=== PATIENT | male | born 1955 | race Caucasian/White ===

== ENCOUNTER 2017-10-18 08:33 | Emergency (ER) | payer BC, SELFPAY ==
[2017-10-18 08:36] VITALS: BP 163/88; PULSE 77; RESP 20; TEMP 36.6; O2SAT 100; BMI 34.7
--- NOTE | 2017-10-18 09:02 | [facility].EDGENADL ---
ED Disposition Clinical Impression: Venous stasis ulcer with edema of lower leg Disposition: Home, Self-Care Condition on Discharge: Good Instructions: DI for Edema Due to Venous Stasis, Venous Stasis Ulcer Additional Instructions: Follow-up at edema clinic as scheduled. Elevate legs as often as possible Additional instructions for CONTROLLED SUBSTANCES: You have been prescribed a medication that is a controlled substance. Controlled substances include pain medications known as opiates and sedative nerve medications known as benzodiazepines. Some common opiates include: Codeine (such as Tylenol #3) Hydrocodone (Vicodin, Lortab, Lorcet, Dougherty) Oxycodone (Percocet, Percodan, Oxycodone, Oxy IR) Some common benzodiazepines include: Diazepam (Valium) Lorazepam (Ativan) Alprazolam (Xanax) Clonazepam (Klonopin) Oxazepam (Serax) All of these controlled substances are highly addictive and frequently abused. Misuse can and frequently does lead to addiction as well as overdose and . Medication should be stored in a locked cabinet or other secure storage unit. Do not store the medication in a motor vehicle. Short term supplies, 3 days or less, are prescribed because of the highly addictive nature of the medication. Any of the controlled substance medication NOT taken should be disposed of properly and NOT SAVED. The recommended method of disposing of unused medications is: Place the medicines in a sealable plastic bag. If the medicine is a solid, crush it or add water to dissolve it. Add something undesirable (cat litter, coffee grounds, etc.) Dispose of sealed bag in household trash Do not flush or pour unused medicines down a sink or drain. Controlled substances should not be shared, given away or sold. Because of the addictive nature and frequent abuse, these medications are sometimes stolen. These medications should be kept in a safe place where they cannot be stolen. Do not keep them in your car or purse. Lost or stolen prescriptions for controlled substances WILL NOT BE REFILLED in this emergency department, regardless of whether a police report was filed. Prescriptions: Tramadol HCl [Ultram 50mg tablet] 50 mg PO HSP PRN #10 tab PRN Reason: Moderate Pain Referrals: Shanon Peralta [Primary Care Provider] - - Critical Care Critical Care Time: No Attestation: On 10/18/17, the high probability of a clinically significant, sudden or life threatening deterioration of the following system(s) required my full and direct attention, intervention and personal management. The time I documented below is in addition to time spent performing reported procedures but includes the following listed in this critical care notation. Medical Decision Making Vital Signs: 10/18/17 08:36 Temperature 97.8 F Temperature Source Oral Pulse Rate [Right Brachial] 77 Respiratory Rate 20 Blood Pressure [Right Arm] 163/88 Blood Pressure Mean [Right Arm] 113 Blood Pressure Source [Right Arm] Automatic Cuff Blood Pressure Position [Right Arm] Sitting 02 Sat by Pulse Oximetry 100 Oxygen Delivery Method Room Air - Lab Data Lab Results 10/18/17 09:20: WBC 10.1, RBC 5.36, Hgb 15.1, Hct 47.3, MCV 88.2, MCH 28.2, MCHC 32.0, RDW 14.5, Plt Count 275, MPV 7.9, Neut % (Auto) 83.6 H, Lymph % (Auto) 9.0 L, [place] % (Auto) 5.8, Eos % (Auto) 1.1, Baso % (Auto) 0.5, Neut # (Auto) 8.5 H, Lymph # (Auto) 0.9, [place] # (Auto) 0.6, Eos # (Auto) 0.1, Baso # (Auto) 0.1 10/18/17 09:20: Sodium 141, Potassium 4.1, Chloride 102, Carbon Dioxide 32, Anion Gap 11.1, BUN 24 H, Creatinine 0.94, Estimated Creat Clear 138, Estimated GFR 82, Est GFR ( Amer) 99, Glucose 195 H, Calcium 8.9, Total Bilirubin 0.2, AST 11 L, ALT 26, Alkaline Phosphatase 105, Total Protein 7.2, Albumin 3.4, Globulin 3.8 H, Albumin/Globulin Ratio 0.9 L 10/18/17 09:20: Lactic Acid 1.3 10/18/17 09:20: TSH 0.52, Free T4 Index 5.0 L, Thyroxine (T4) 12.9, T3 Uptake 39 0
[2017-10-18 09:30] LABS: Basophils # 0.1 K/mm3 (0-0.2); Basophils % 0.5 % (0.1-2.0); Eosinophils # 0.1 K/mm3 (0.0-0.4); Eosinophils % 1.1 % (0.1-12.0); Hematocrit 47.3 % (42.0-52.0); Hemoglobin 15.1 g/dL (14.1-18.0); Lymphocytes # 0.9 K/mm3 (0.7-4.5); Mean Corpuscular Hemoglobin 28.2 pg (27.0-31.2); Mean Corpuscular Volume 88.2 fl (80-94); Mean Platelet Volume 7.9 fl (7.4-10.4); Monocytes # 0.6 K/mm3 (0.1-1.0); Monocytes % 5.8 % (1.7-9.3); Neutrophils # 8.5 K/mm3 (1.8-7.8); Neutrophils % 83.6 % (37.0-80.0); Platelet Count 275 K/mm3 (142-424); Red Blood Count 5.36 M/mm3 (4.60-6.20); Red Cell Distribution Width 14.5 % (11.5-17.5); White Blood Count 10.1 K/mm3 (4.8-10.8)
[2017-10-18 09:44] LABS: Alanine Aminotransferase 26 U/L (12-78); Albumin Level 3.4 gm/dL (3.4-5.0); Albumin/Globulin Ratio 0.9 (1.1-1.8); Alkaline Phosphatase 105 U/L (46-116); Anion Gap 11.1 mEq/L (5-15); Aspartate Amino Transferase 11 U/L (15-37); Bilirubin,Total 0.2 mg/dL (0.2-1.0); Blood Urea Nitrogen 24 mg/dL (7-18); Calcium 8.9 mg/dL (8.5-10.1); Carbon Dioxide 32 mmol/L (21.0-32.0); Chloride 102 mmol/L (98-107); Creatinine Clearance Estimated 138 mL/min (0-300); Creatinine,Serum 0.94 mg/dL (0.70-1.30); Estimated Glomerular Filt Rate 82 ml/min (>60); GFR (African American) 99 ML/MIN (>60); Globulin 3.8 gm/dl (1.3-3.2); Glucose 195 mg/dL (74-106); Potassium 4.1 mmoL/L (3.5-5.1); Sodium 141 mmol/L (136-145); Total Protein,Serum 7.2 gm/dL (6.4-8.2)
[2017-10-18 09:51] LABS: Lactic Acid 1.3 mmol/L (0.4-2.0)
[2017-10-18 09:52] LABS: T4 (Thyroxine) 12.9 ug/dl (4.7-13.3); Thyroid Stimulating Hormone 0.52 uIU/ml (0.358-3.740); Triiodothryronine (T3) Uptake 39 % (31-39)
[2017-10-18 10:43] VITALS: BP 148/78; PULSE 78; RESP 18; TEMP 36.7; O2SAT 100
== END 2017-10-18 10:53 | disposition home or self-care (01) ==
PROVIDERS: Emergency Provider Emergency Medicine; Family Provider Physician Assistant; PCP Physician Assistant
DX: I83.022 Varicose veins of left lower extremity with ulcer of calf (principal); E11.65 Type 2 diabetes mellitus with hyperglycemia; Z79.4 Long term (current) use of insulin; Z79.84 Long term (current) use of oral hypoglycemic drugs; I10 Essential (primary) hypertension; Z87.891 Personal history of nicotine dependence
CPT/HCPCS: 80053; 83605; 83880; 84436; 84443; 84479; 85025; 87040; 99283

== ENCOUNTER → 2017-10-24 15:18 | Outpatient (REF) | payer BC, SELFPAY | LOC: LAB 15:18 | PROVIDERS: Visit Provider Emergency Medicine | DX: L03.116 Cellulitis of left lower limb (principal) | CPT/HCPCS: 36415; 87070; 87077; 87186; 87205 ==

== ENCOUNTER → 2017-12-29 08:43 | Outpatient (CLI) | payer BC, SELFPAY ==
[2017-12-29 09:35] LABS: Basophils % 0.5 % (0.1-2.0); Eosinophils # 0.3 K/mm3 (0.0-0.4); Eosinophils % 3.3 % (0.1-12.0); Hematocrit 44.6 % (42.0-52.0); Hemoglobin 14.8 g/dL (14.1-18.0); Lymphocytes # 1.9 K/mm3 (0.7-4.5); Lymphocytes % 23.5 K/mm3 (10-50); Mean Corpuscular HGB Conc 33.2 g/dL (31.8-35.4); Mean Corpuscular Hemoglobin 27.7 pg (27.0-31.2); Mean Corpuscular Volume 83.4 fl (80-94); Mean Platelet Volume 8.3 fl (7.4-10.4); Monocytes # 0.4 K/mm3 (0.1-1.0); Monocytes % 5.4 % (1.7-9.3); Neutrophils # 5.3 K/mm3 (1.8-7.8); Neutrophils % 67.3 % (37.0-80.0); Platelet Count 259 K/mm3 (142-424); Red Blood Count 5.35 M/mm3 (4.60-6.20); Red Cell Distribution Width 14.2 % (11.5-17.5); White Blood Count 7.9 K/mm3 (4.8-10.8)
[2017-12-29 10:21] LABS: Alanine Aminotransferase 23 U/L (12-78); Albumin Level 3.4 gm/dL (3.4-5.0); Albumin/Globulin Ratio 1.1 (1.1-1.8); Alkaline Phosphatase 100 U/L (46-116); Anion Gap 11.5 mEq/L (5-15); Aspartate Amino Transferase 17 U/L (15-37); Bilirubin,Total 0.4 mg/dL (0.2-1.0); Blood Urea Nitrogen 20 mg/dL (7-18); Calcium 9.3 mg/dL (8.5-10.1); Carbon Dioxide 30 mmol/L (21.0-32.0); Chloride 104 mmol/L (98-107); Chol/HDL Ratio 3.1 (1-3.5); Cholesterol 116 mg/dL (140-200); Creatinine,Serum 0.77 mg/dL (0.70-1.30); Estimated Glomerular Filt Rate 103 ml/min (>60); GFR (African American) 124 ML/MIN (>60); Glucose 113 mg/dL (74-106); HDL Cholesterol 38 mg/dL (27-67); LDL Cholesterol 64 mg/dL (0-130); Potassium 4.5 mmoL/L (3.5-5.1); Sodium 141 mmol/L (136-145); Total Protein,Serum 6.4 gm/dL (6.4-8.2); Triglycerides 69 mg/dL (30-200); VLDL Cholesterol 14 mg/dL (0-40)
[2017-12-29 10:57] LABS: Hemoglobin A1C 8.4 % (0.0-7.0)
== END ==
PROVIDERS: Visit Provider Internal Medicine Adolescent Medicine
DX: E11.9 Type 2 diabetes mellitus without complications (principal); B95.62 Methicillin resistant Staphylococcus aureus infection as the cause of diseases classified elsewhere
CPT/HCPCS: 36415; 80053; 80061; 83036; 85025

== ENCOUNTER 2018-01-02 09:00 | Outpatient (RCR) | payer BC, SELFPAY | END 2018-01-02 09:01 | disposition home or self-care (01) | LOC: PT 09:00 | PROVIDERS: Family Provider Physician Assistant; PCP Physician Assistant; Visit Provider Emergency Medicine | DX: I89.0 Lymphedema, not elsewhere classified (principal) | CPT/HCPCS: 29580; 87070; 87205; 97140; 97162; 97597; 97760 ==

== ENCOUNTER → 2018-02-15 14:59 | Outpatient (CLI) | payer BC, SELFPAY ==
--- NOTE | 2018-02-15 15:02 | US_ITS ---
US Arterial Ankle Brachial Ind History: ITS.REASON: skin changes , venous stasis ulcers, hypertension, previous smoker ORDERING PHYSICIAN: Theresa Morales DPM PATIENT AGE: 62 years TECHNIQUE: Segmental pressures obtained of both right and left leg. These are compared to brachial blood pressure to yield index at each level sampled including summary LILIYA. The data sheets from the procedure are available in PACS FINDINGS Rest study only performed today No prior studies available for comparison. Blood pressures reported are in millimeters mercury. RIGHT LEG LILIYA = 1.2. RIGHT LEG TBI=.9 Brachial BP: 164 Thigh BP: 194 Calf BP: 201 Ankle PT: 202 Ankle DP : 186 Digit =147 LEFT LEG LILIYA = 1.2 LEFT LEG TBI= .8 Brachial BPD: 161 Thigh BP: 196 Calf BP: 197 Ankle PT:199 Ankle DP: 187 Digit = 131 Pulses and waveforms: Diminished waveforms at the ankles IMPRESSION: The ABIs and TBI's are within normal limits. There is diminished waveforms at the ankle but the pulses are normal
== END ==
PROVIDERS: Family Provider Physician Assistant; PCP Internal Medicine Adolescent Medicine; Visit Provider Podiatrist
DX: I83.009 Varicose veins of unspecified lower extremity with ulcer of unspecified site (principal); R60.9 Edema, unspecified; R23.9 Unspecified skin changes; E11.8 Type 2 diabetes mellitus with unspecified complications
CPT/HCPCS: 93922

== ENCOUNTER 2018-07-25 11:51 | Observation (INO) ==
[2018-07-25 13:22] LABS: Basophils # 0.1 K/mm3 (0-0.2); Basophils % 0.5 % (0.1-2.0); Eosinophils # 0.3 K/mm3 (0.0-0.4); Eosinophils % 3.1 % (0.1-12.0); Hematocrit 42.5 % (42.0-52.0); Hemoglobin 13.8 g/dL (14.1-18.0); Lymphocytes # 1.3 K/mm3 (0.7-4.5); Lymphocytes % 13.1 % (10-50); Mean Corpuscular HGB Conc 32.4 g/dL (31.8-35.4); Mean Corpuscular Hemoglobin 27.4 pg (27.0-31.2); Mean Corpuscular Volume 84.8 fl (80-94); Mean Platelet Volume 8.3 fl (7.4-10.4); Monocytes # 0.6 K/mm3 (0.1-1.0); Monocytes % 6.2 % (1.7-9.3); Neutrophils # 7.4 K/mm3 (1.8-7.8); Neutrophils % 77.2 % (37.0-80.0); Platelet Count 285 K/mm3 (142-424); Red Blood Count 5.02 M/mm3 (4.60-6.20); Red Cell Distribution Width 14.2 % (11.5-17.5); White Blood Count 9.6 K/mm3 (4.8-10.8)
--- NOTE | 2018-07-25 13:23 | Pharmacy Consult Notes ---
[facility] Pharmacy VTE Monitoring - Patient Demographics Admission date: 07/25/18 Report Date: 07/25/18 Time: 13:22 Allergies/Adverse Reactions: Patient Allergies No Known Allergies Allergy (Verified 04/26/18 09:29) Height: 1.91 m Weight: 127.006 kg - VTE Risk VTE Score: 2 VTE Risk Level: Low Risk - Prophylaxis VTE Prophylaxis Ordered?: Yes Types of VTE Prophylaxis: Pharmacological Pharmacologic Type: Enoxaparin
[2018-07-25 13:27] LABS: Albumin Level 2.9 gm/dL (3.4-5.0); Albumin/Globulin Ratio 0.7 (1.1-1.8); Anion Gap 12.8 mEq/L (5-15); Bilirubin,Total 0.7 mg/dL (0.2-1.0); C-Reactive Protein 9.2 mg/L (0.0-0.9); Calcium 8.7 mg/dL (8.5-10.1); Globulin 4.1 gm/dl (1.3-3.2); Potassium 3.8 mmoL/L (3.5-5.1)
--- NOTE | 2018-07-25 14:32 | Consult Report ---
*Admission Date: 07/25/18 *Chief complaint: Left foot cellulitis, DM ulcer *History of present illness: Mr. Nunez is a 63 DM male who presents for a direct admission from Dr. Mullen's office for left foot pain and swelling. He states he noticed some time last week a "blister to the left great toe". He denies drainage from the foot. He states yesterday when he took off his sock the blister skin tore off. Denies purulent drainage. He denies N/V, F/C, SOB/CP. Patient sees us in outpatient clinic regularly for DFC. He also sees Emma Curran at lymphedema clinic for compression therapy. He has a history of b/l LE edema. Review of Systems - Constitutional Reports anorexia, Denies chills - Eyes Denies blurry vision - ENT Denies abnormal hearing, Denies headache(s) - *Cardiovascular Reports generalized swelling (LLE), Denies shortness of breath - *Respiratory Denies chest congestion, Denies shortness of breath - *Gastrointestinal Denies nausea, Denies vomiting - *Genitourinary Denies difficulty urinating - *Musculoskeletal Denies abnormal walking - Integumentary/Breasts Reports hair loss - *Neurologic Reports tingling/numbness/burning sensations, Denies confusion, Denies headache(s) - Psychiatric Denies behavioral changes - Endocrine Denies cold intolerance - Hematologic/Lymphatic Denies easy bleeding [facility] History Medical History: Reports:: Cancer (skin cancer), Diabetes Mellitus Type 2, H yperlipidemia, Hypertension Denies:: Diabetes Mellitus Type 1, Internal Pacemaker, Lung Disease, MRSA, Seizures Other Medical History: Reports: Hypothyroidism Laterality Cases: Bilateral: Tonsillectomy Other Surgeries: Yes: Appendectomy, Hernia Repair (x3), Thyroidectomy. No: Pacemaker Amputation: No Fractures: No - *Social History Educational Level: Completed High School Smoking Status: Former smoker Alcohol Intake: never Alcohol Intake Frequency:: other Occupational Status: retired Housing: house Household Members: none - Psychiatric History Expresses thoughts of harming self/others: None Suicide Plan Description: No Plan *Family Hx:: Diabetes, Hyperlipidemia, Hypertension Meds Home Medications Medication Instructions Recorded Confirmed Type Aspirin [Aspirin 325mg Tab] 325 mg PO DAILY 10/18/17 07/25/18 History Atorvastatin Calcium [Atorvastatin 20 mg PO HS 10/18/17 07/25/18 History 20mg Tab] Levothyroxine Sodium 250 mcg PO DAILY 10/18/17 07/25/18 History [Levothyroxine 125mcg (0.125mg) Tab] Lisinopril [Lisinopril 40mg Tablet] 40 mg PO HS 10/18/17 07/25/18 History Metformin HCl [Glucophage 500mg 1,000 mg PO BID 10/18/17 07/25/18 History Tablet] insulin aspar prt-insulin aspart 10 - 30 unit SUB-Q QAM 01/29/18 07/25/18 History 100 unit/mL (70-30) subcutaneous soln insulin glargine 100 28 units SUB-Q QAM ml 01/29/18 07/25/18 History unit-lixisenatide 33 mcg/mL subcutaneous pen Allergies Allergy/AdvReac Type Severity Reaction Status Date / Time No Known Allergies Allergy Verified 04/26/18 09:29 Exam Vital signs and Labs for Last 24 Hours: Temp Pulse Resp BP Pulse Ox 97.0 F L 82 18 164/71 H 98 07/25/18 12:29 07/25/18 12:29 07/25/18 12:29 07/25/18 12:29 07/25/18 12:29 Laboratory Results - last 24 hr 07/25/18 12:50: WBC 9.6, RBC 5.02, Hgb 13.8 L, Hct 42.5, MCV 84.8, MCH 27.4, MCHC 32.4, RDW 14.2, Plt Count 285, MPV 8.3, Neut % (Auto) 77.2, Lymph % (Auto) 13.1, [place] % (Auto) 6.2, Eos % (Auto) 3.1, Baso % (Auto) 0.5, Neut # (Auto) 7.4, Lymph # (Auto) 1.3, [place] # (Auto) 0.6, Eos # (Auto) 0.3, Baso # (Auto) 0.1 07/25/18 12:50: Sodium 139, Potassium 3.8, Chloride 101, Carbon Dioxide 29, Anion Gap 12.8, BUN 26 H, Creatinine 0.99, Estimated Creat Clear 138, Estimated GFR 77, Est GFR ( Amer) 93, Glucose 202 H, Calcium 8.7, Total Bilirubin 0.7, AST 8 L, ALT 21, Alkaline Phosphatase 119 H, C-Reactive Protein 9.2 H, Total Protein 7.0, Albumin 2.9 L, Globulin 4.1 H, Albumin/Globulin Ratio 0.7 L 07/25/18 12:50: ESR 59 H 07/25/18 12:50: Hemoglobin A1c 7.5 H I & O for Last 24 hours: Intake & Output 07/23/18 07/24/18 07/25/18 07/26/18 11:59 11:59 11:59 11:59 Weight 280 lb - *Routine HEENT Exam Head: Present: normocephalic - *Routine Neck Exam Present: supple, full ROM - *Routine Respiratory Exam Present: accessory muscle use. Absent: respiratory distress - *Routine Cardiovascular Exam Present: RRR - *Routine Abdominal Exam Present: soft. Absent: guarding - *Routine Rectal Exam Patient deferred: visual exam - *Routine Exam Patient deferred: penile exam - *Routine Extremities Exam Present: edema, pulses intact, tenderness (LLE). Absent: amputation - *Routine Skin Exam Present: erythema, warm, wounds - *Routine Neurological Exam Present: alert, oriented X3, moving all extremities - Detailed Lower Extremity Exam Ankle: Left erythema, Left tenderness Foot/Toes: Left erythema Top foot image: 1 - Left hallux intact eschar. Ulcer thru skin. No deep opening or sinus tracking. No pain to palpation. Post debridement, wound base 50% intact eschar, 30% fibrotic and 20% granular. Measures 2.7 x 2.3 x 0.1 cm, probes thru skin to subq. Not to bone. No malodor or drainage. No fluid to culture. 2 - Left sub 5th met ulcer. Wound base fibrotic. Measures 2.1 x 1.8 x 0.2cm post debridement. Wound thru skin into subq layer. No probe to bone Results - Labs Result Diagrams: 07/25/18 12:50 07/25/18 12:50 Labs: Abnormal lab results 07/25/18 07/25/18 07/25/18 Range/Units 12:50 12:50 12:50 Hgb 13.8 L (14.1-18.0) g/dL ESR 59 H (0-20) mm/hr BUN 26 H (7-18) mg/dL Glucose 202 H (74-106) mg/dL Hemoglobin A1c (0.0-7.0) % AST 8 L (15-37) U/L Alkaline Phosphatase 119 H (46-116) U/L C-Reactive Protein 9.2 H (0.0-0.9) mg/L Albumin 2.9 L (3.4-5.0) gm/dL Globulin 4.1 H (1.3-3.2) gm/dl Albumin/Globulin Ratio 0.7 L (1.1-1.8) 07/25/18 Range/Units 12:50 Hgb (14.1-18.0) g/dL ESR (0-20) mm/hr BUN (7-18) mg/dL Glucose (74-106) mg/dL Hemoglobin A1c 7.5 H (0.0-7.0) % AST (15-37) U/L Alkaline Phosphatase (46-116) U/L C-Reactive Protein (0.0-0.9) mg/L Albumin (3.4-5.0) gm/dL Globulin (1.3-3.2) gm/dl Albumin/Globulin Ratio (1.1-1.8) H & H 07/25/18 Range/Units 12:50 Hgb 13.8 L (14.1-18.0) g/dL Hct 42.5 (42.0-52.0) % All other labs normal. - Diagnostic results Ankle/Foot x-ray: image reviewed Assessment and Plan (1) Cellulitis of left foot Current visit: Yes Status: Acute Category: Medical Code(s): L03.116 - Cellulitis of left lower limb (2) Ulcer of left foot due to type 2 diabetes mellitus Current visit: Yes Status: Acute Category: Medical Code(s): E11.621 - Type 2 diabetes mellitus with foot ulcer; L97.529 - Non-pressure chronic ulcer of other part of left foot with unspecified severity (3) Venous insufficiency (chronic) (peripheral) Current visit: Yes Status: Acute Category: Medical Code(s): I87.2 - Venous insufficiency (chronic) (peripheral) (4) Obesity, Class II, BMI 35-39.9 Current visit: Yes Status: Acute Category: Medical Code(s): E66.9 - Obesity, unspecified (5) Diabetes mellitus Current visit: Yes Status: Acute Qualifiers: Diabetes mellitus type: type 2 Diabetes mellitus terminologist insulin use: without half-way use Diabetes mellitus complication status: with neurologic complications Diabetes mellitus complication detail: with polyneuropathy Qualified Code(s): E11.42 - Type 2 diabetes mellitus with diabetic polyneuropathy Category: Medical Code(s): E11.9 - Type 2 diabetes mellitus without comp lications - Assessment and plan all Dx Assessment and Plan for all problems:: Left Foot Cellulitis and Infected Wound: left hallux and sub 5th met ulcer I discussed with the patient the importance of proper hygiene and maintaining a clean healthy wound bed to avoid the infection spreading. The wound was cleansed with betadine. Utilizing a 15 blade, the wound was sharply excisionally debrided through skin into sub q layer. Biofilm and fibrotic slough were debrided. The wound did not probe thru deep fascia and into the bone. There was no drainage and no purulence noted. No wound culture obtained. Blanche-wound cellulitis noted and extends to foot and to mid calf on the left leg. Non-palpable popliteal lymph nodes. Post-debridement the left hallux wound base was: 20% granular, 30% fibrotic, 50% eschar and measured 2.7 x 2.3 x 0.1 cm. . Post-debridement the left sub 5th met wound base was: 100% fibrotic and measured 2.1 x 1.8 x 0.2 cm. Labs: ESR 59, CRP 9.2, wbc 9.6, Ha1c 7.5% 1. Dressing applied: betadine dry sterile dressing 2. Wound care instructions given: change dressing daily with Santyl 3. PWB in post op shoe with DME assistance; needs walker 4. Order infection panel: CBC, ESR, CRP, Ha1c, CMP. 5. IV antibiotics 6. X-rays 3 views left foot: no definitive ostemyelitis 7. MRI left foot w/wout to evaluate for underlying OM 8. I discussed treatment plan with the patient. No plans for surgical intervention today. Will await results of the MRI. I did discuss with the patient if there is osteomyelitis I would recommend amputation/debridement. If no osteomyelitis can continue the antibiotics for the cellulitis and do local wound care outpatient for the ulcers. Patient verbalizes understanding and agreement with the treatment plan 9. NPO after midnight tonight 10. Plan to see patient in the am
--- NOTE | 2018-07-25 17:11 | History & Physical Report ---
*Admission Date: 07/25/18 *Chief complaint: left foot pain and swelling *History of present illness: Mr. Nunez is a 63 DM male who presents for a direct admission from Dr. Mullen's office for left foot pain and swelling. He states he noticed some time last week a "blister to the left great toe". He denies drainage from the foot. He states yesterday when he took off his sock the blister skin tore off. Denies purulent drainage. He denies N/V, F/C, SOB/CP. Patient sees us in outpatient clinic regularly for DFC. He also sees Emma Curran at lymphedema clinic for compression therapy. He has a history of b/l LE edema. Above per Dr. Morales [facility] History I have reviewed the patient's past medical history: Yes Medical History: Reports:: Cancer (skin cancer), Diabetes Mellitus Type 2, Hyperlipidemia, Hypertension Denies:: Diabetes Mellitus Type 1, Internal Pacemaker, Lung Disease, MRSA, Seizures Other Medical History: Reports: Hypothyroidism Laterality Cases: Bilateral: Tonsillectomy Other Surgeries: Yes: Appendectomy, Hernia Repair (x3), Thyroidectomy. No: Pacemaker Amputation: No Fractures: No - *Social History Educational Level: Completed High School Smoking Status: Former smoker Alcohol Intake: never Alcohol Intake Frequency:: other Occupational Status: retired Housing: house Household Members: none - Psychiatric History Expresses thoughts of harming self/others: None Suicide Plan Description: No Plan *Family Hx:: Diabetes, Hyperlipidemia, Hypertension Review of Systems - Review of Systems Review of systems:: pertinent systems reviewed and negative unless documented below - Integumentary/Breasts Comments: left toe wound, left lateral foot wound - *Neurologic Reports tingling/numbness/burning sensations, Denies abnormal walking, Denies abnormal hearing, Denies behavioral changes, Denies confusion, Denies headache(s) Meds Home Medications Medication Instructions Recorded Confirmed Type Aspirin [Aspirin 325mg Tab] 325 mg PO DAILY 10/18/17 07/25/18 History Atorvastatin Calcium [Atorvastatin 20 mg PO HS 10/18/17 07/25/18 History 20mg Tab] Levothyroxine Sodium 250 mcg PO DAILY 10/18/17 07/25/18 History [Levothyroxine 125mcg (0.125mg) Tab] Lisinopril [Lisinopril 40mg Tablet] 40 mg PO HS 10/18/17 07/25/18 History Metformin HCl [Glucophage 500mg 1,000 mg PO BID 10/18/17 07/25/18 History Tablet] insulin aspar prt-insulin aspart 10 - 30 unit SUB-Q QAM 01/29/18 07/25/18 History 100 unit/mL (70-30) subcutaneous soln insulin glargine 100 28 units SUB-Q QAM ml 01/29/18 07/25/18 History unit-lixisenatide 33 mcg/mL subcutaneous pen Allergies Allergy/AdvReac Type Severity Reaction Status Date / Time No Known Allergies Allergy Verified 04/26/18 09:29 Exam Vital signs and Labs for Last 24 Hours: Temp Pulse Resp BP Pulse Ox 97.0 F L 82 18 164/71 H 98 07/25/18 12:29 07/25/18 12:29 07/25/18 12:29 07/25/18 12:29 07/25/18 12:29 Laboratory Results - last 24 hr 07/25/18 12:50: WBC 9.6, RBC 5.02, Hgb 13.8 L, Hct 42.5, MCV 84.8, MCH 27.4, MCHC 32.4, RDW 14.2, Plt Count 285, MPV 8.3, Neut % (Auto) 77.2, Lymph % (Auto) 13.1, [place] % (Auto) 6.2, Eos % (Auto) 3.1, Baso % (Auto) 0.5, Neut # (Auto) 7.4, Lymph # (Auto) 1.3, [place] # (Auto) 0.6, Eos # (Auto) 0.3, Baso # (Auto) 0.1 07/25/18 12:50: Sodium 139, Potassium 3.8, Chloride 101, Carbon Dioxide 29, Anion Gap 12.8, BUN 26 H, Creatinine 0.99, Estimated Creat Clear 138, Estimated GFR 77, Est GFR ( Amer) 93, Glucose 202 H, Calcium 8.7, Total Bilirubin 0.7, AST 8 L, ALT 21, Alkaline Phosphatase 119 H, C-Reactive Protein 9.2 H, Total Protein 7.0, Albumin 2.9 L, Globulin 4.1 H, Albumin/Globulin Ratio 0.7 L 07/25/18 12:50: ESR 59 H 07/25/18 12:50: Hemoglobin A1c 7.5 H I & O for Last 24 hours: Intake & Output 07/23/18 07/24/18 07/25/18 07/26/18 11:59 11:59 11:59 11:59 Weight 280 lb Microbiology Reports for the Last 24 Hours: Microbiology 07/25/18 13:45 Foot,Left Gram Stain - Final Narrative: ALert and oriented x3. Rate and rhythm regular. Lung sounds clear and equal. ENT exam unremarkable. Abdomen soft and nontender, left 1st toe with eschar, biofilm and sloughing of skin, serous fluid seeping from wound, edema and erythema extend up the foot, 1+ LLE edema, right foot with multiple varcosities Assessment and Plan (1) Cellulitis of left foot Current visit: Yes Status: Acute Category: Medical Code(s): L03.116 - Cellulitis of left lower limb (2) Ulcer of left foot due to type 2 diabetes mellitus Current visit: Yes Status: Acute Category: Medical Code(s): E11.621 - Type 2 diabetes mellitus with foot ulcer; L97.529 - Non-pressure chronic ulcer of other part of left foot with unspecified severity (3) Venous insufficiency (chronic) (peripheral) Current visit: Yes Status: Acute Category: Medical Code(s): I87.2 - Venous insufficiency (chronic) (peripheral) (4) Obesity, Class II, BMI 35-39.9 Current visit: Yes Status: Acute Category: Medical Code(s): E66.9 - Obesity, unspecified (5) Diabetes mellitus Current visit: Yes Status: Acute Qualifiers: Diabetes mellitus type: type 2 Diabetes mellitus intermediate insulin use: without intermediate use Diabetes mellitus complication status: with neurologic complications Diabetes mellitus complication detail: with polyneuropathy Qualified Code(s): E11.42 - Type 2 diabetes mellitus with diabetic polyneuropathy Category: Medical Code(s): E11.9 - Type 2 diabetes mellitus without complications - Assessment and plan all Dx Assessment and Plan for all problems:: Admit for IV antibiotics. Podiatry consulted, note reviewed and appreciated. Sed rate and CRP are elevated which is concerning. Will obtain MRI of left foot tomorrow as ordered by Dr. Morales and treat as indicated.
[2018-07-26 07:20] LABS: Basophils # 0.1 K/mm3 (0-0.2); Basophils % 0.7 % (0.1-2.0); Eosinophils # 0.3 K/mm3 (0.0-0.4); Eosinophils % 3.1 % (0.1-12.0); Hematocrit 41.5 % (42.0-52.0); Hemoglobin 13.4 g/dL (14.1-18.0); Lymphocytes # 1.7 K/mm3 (0.7-4.5); Lymphocytes % 19.3 % (10-50); Mean Corpuscular HGB Conc 32.2 g/dL (31.8-35.4); Mean Corpuscular Volume 83.8 fl (80-94); Mean Platelet Volume 7.6 fl (7.4-10.4); Monocytes # 0.6 K/mm3 (0.1-1.0); Monocytes % 6.8 % (1.7-9.3); Neutrophils # 6.3 K/mm3 (1.8-7.8); Neutrophils % 70.2 % (37.0-80.0); Platelet Count 307 K/mm3 (142-424); Red Blood Count 4.96 M/mm3 (4.60-6.20); Red Cell Distribution Width 13.9 % (11.5-17.5)
--- NOTE | 2018-07-26 08:11 | Progress Note ---
Subjective Date: 07/26/18 Time: 07:50 Principal diagnosis: Left foot DM ulcer Interval history: Patient "feels fine". He is resting comfortably, ate breakfast. Denies N/V, F/C, SOB/CP. PN: Obj Ex Vital signs: Temp Pulse Resp BP Pulse Ox 98.3 F 79 17 113/74 93 L 07/26/18 04:00 07/26/18 04:00 07/26/18 04:00 07/26/18 04:00 07/26/18 04:00 - Constitutional no acute distress - Routine HEENT Exam Head: Present: normocephalic ENT: Present: mucous membranes moist - Routine Neck Exam Present: supple - Routine Respiratory Exam Absent: respiratory distress - Routine Cardiovascular Exam Present: RRR - Routine Abdominal Exam Present: soft - Detailed Lower Extremity Exam Comments: Left lower cellulitis improving. No pain. No odor 1. Left hallux ulcer. Ulcer thru skin. No deep opening or sinus tracking. No pain to palpation. Post debridement, wound base 30% intact sloughing eschar, 50% fibrotic and 20% granular. Measures 2.7 x 2.3 x 0.1 cm, probes thru skin to subq. Not to bone. No malodor or drainage. No fluid to culture. 2. Left sub 5th met ulcer. Wound base 50% fibrotic and 50% granular. Measures 2.1 x 1.8 x 0.2cm post debridement. Wound thru skin into subq layer. No probe to bone Progress Note: A&P (1) Cellulitis of left foot Status: Acute Current Visit: Yes (2) Ulcer of left foot due to type 2 diabetes mellitus Status: Acute Current Visit: Yes (3) Venous insufficiency (chronic) (peripheral) Status: Acute Current Visit: Yes (4) Obesity, Class II, BMI 35-39.9 Status: Acute Current Visit: Yes (5) Diabetes mellitus Status: Acute Current Visit: Yes Assessment and Plan for All Diagnoses:: Left Foot Cellulitis and Infected Wound: left hallux and sub 5th met ulcer Debridement: The wound was cleansed with betadine. Utilizing a 15 blade, the wound was sharply excisionally debrided through skin into sub q layer. Biofilm and fibrotic slough were debrided. The wound did not probe thru deep fascia and into the bone. There was no drainage and no purulence noted. Post-debridement the left hallux wound base was: 20% granular, 50% fibrotic, 30% eschar and measured 2.7 x 2.3 x 0.1 cm. . Post-debridement the left sub 5th met wound base was: 50% fibrotic and 50% granular measured 2.1 x 1.8 x 0.2 cm. Overall the LLE is improving. MRI (-) OM. 1. Dressing applied: Santyl dry sterile dressing 2. Patient ok to change dressing at home 3. PWB in post op shoe with DME assistance; needs walker 4. Discussed POC w/ Soledad: rec PICC, IV Abx 5. I discussed treatment plan with the patient. No plans for surgical intervention. Plan for PICC placement today, IV antibiotics for the cellulitis and do local wound care outpatient for the ulcers. He will do Santyl daily dsg changes. Patient verbalizes understanding and agreement with the treatment plan 6. Plan for dressing change and debridement, application of Unna boot in the am prior to discharge 7. Plan to discharge lucero
--- NOTE | 2018-07-26 08:17 | Progress Note ---
Internal Medicine - PN: Subj *Date: 07/26/18 *Time: 07:40 Interval history: Patient is sitting up in chair with no complaints. Denies any pain or discomfort. Exam Vital signs and Labs for Last 24 Hours: Temp Pulse Resp BP Pulse Ox 98.3 F 79 17 113/74 93 L 07/26/18 04:00 07/26/18 04:00 07/26/18 04:00 07/26/18 04:00 07/26/18 04:00 Laboratory Results - last 24 hr 07/25/18 12:50: WBC 9.6, RBC 5.02, Hgb 13.8 L, Hct 42.5, MCV 84.8, MCH 27.4, MCHC 32.4, RDW 14.2, Plt Count 285, MPV 8.3, Neut % (Auto) 77.2, Lymph % (Auto) 13.1, [place] % (Auto) 6.2, Eos % (Auto) 3.1, Baso % (Auto) 0.5, Neut # (Auto) 7.4, Lymph # (Auto) 1.3, [place] # (Auto) 0.6, Eos # (Auto) 0.3, Baso # (Auto) 0.1 07/25/18 12:50: Sodium 139, Potassium 3.8, Chloride 101, Carbon Dioxide 29, Anion Gap 12.8, BUN 26 H, Creatinine 0.99, Estimated Creat Clear 138, Estimated GFR 77, Est GFR ( Amer) 93, Glucose 202 H, Calcium 8.7, Total Bilirubin 0.7, AST 8 L, ALT 21, Alkaline Phosphatase 119 H, C-Reactive Protein 9.2 H, Total Protein 7.0, Albumin 2.9 L, Globulin 4.1 H, Albumin/Globulin Ratio 0.7 L 07/25/18 12:50: ESR 59 H 07/25/18 12:50: Hemoglobin A1c 7.5 H 07/25/18 18:27: POC Glucose 141 H 07/25/18 20:25: POC Glucose 205 H 07/26/18 06:00: POC Glucose 89 07/26/18 07:08: WBC 9.0, RBC 4.96, Hgb 13.4 L, Hct 41.5 L, MCV 83.8, MCH 27.0, MCHC 32.2, RDW 13.9, Plt Count 307, MPV 7.6, Neut % (Auto) 70.2, Lymph % (Auto) 19.3, [place] % (Auto) 6.8, Eos % (Auto) 3.1, Baso % (Auto) 0.7, Neut # (Auto) 6.3, Lymph # (Auto) 1.7, [place] # (Auto) 0.6, Eos # (Auto) 0.3, Baso # (Auto) 0.1 I & O for Last 24 hours: Intake & Output 07/23/18 07/24/18 07/25/18 07/26/18 11:59 11:59 11:59 11:59 Intake Total 580 / 580 Balance 580 / 580 Weight 280 lb Microbiology Reports for the Last 24 Hours: Microbiology 07/25/18 13:45 Foot,Left Gram Stain - Final 07/25/18 13:45 Foot,Left Wound Culture - Preliminary Gram Positive Cocci Narrative: ALert and oriented x3. Rate and rhythm regular. Left foot with dressing in place, assessment deferred to Dr. Morales. Lung sounds clear and equal. Abdomen soft and nontender. Sensation diminished bilateral feet Assessment and Plan (1) Cellulitis of left foot Current visit: Yes Status: Acute Category: Medical Code(s): L03.116 - Cellulitis of left lower limb (2) Ulcer of left foot due to type 2 diabetes mellitus Current visit: Yes Status: Acute Category: Medical Code(s): E11.621 - Type 2 diabetes mellitus with foot ulcer; L97.529 - Non-pressure chronic ulcer of other part of left foot with unspecified severity (3) Venous insufficiency (chronic) (peripheral) Current visit: Yes Status: Acute Category: Medical Code(s): I87.2 - Venous insufficiency (chronic) (peripheral) (4) Obesity, Class II, BMI 35-39.9 Current visit: Yes Status: Acute Category: Medical Code(s): E66.9 - Obesity, unspecified (5) Diabetes mellitus Current visit: Yes Status: Acute Qualifiers: Qualified Code(s): E11.42 - Type 2 diabetes mellitus with diabetic polyneuropathy Category: Medical Code(s): E11.9 - Type 2 diabetes mellitus without complications - Assessment and plan all Dx Assessment and Plan for all problems:: Discussed with Dr. Morales. Place PICC line today. Continue IV unasyn. Will re-evaluate wound in the am and likely d/c home at the time with daily outpatient FU for IV abx and wound care.
--- NOTE | 2018-07-26 21:48 | Discharge Summary ---
General - General Admission date:: 07/25/18 Discharge date: 07/27/18 HPI HPI: Mr. Nunez is a 63 DM male who presents for a direct admission from Dr. Mullen's office for left foot pain and swelling. He states he noticed some time last week a "blister to the left great toe". He denies drainage from the foot. He states yesterday when he took off his sock the blister skin tore off. Denies purulent drainage. He denies N/V, F/C, SOB/CP. Patient sees us in outpatient clinic regularly for DFC. He also sees Emma Curran at lymphedema clinic for compression therapy. He has a history of b/l LE edema. Above per Dr. Morales Hospital Course Hospital Course: Admitted to Medicine for management of diabetic foot ulcers on left foot. Podiatry consulted. Debridement performed. Initiated on Abx, wound culture obtained, so far positive for GPCs. PICC placed on 07/25/18 for outpatient continuation of IV abx. Tolerated procedures and abx well. remained hemodynamically stable. No plans for surgical intervention as wounds did not go to bone and no concern for osteo at this time. Plan for outpatient daptomycin for the cellulitis and do local wound care outpatient for the ulcers. He will do Santyl daily dressing changes. Patient will return to outpatient and for daily antibiotics and dressing care. Dressing change and debridement performed along with placement of Unna boot on morning of discharge. Medically stable for DC home. Objective Vital signs: Temp Pulse Resp BP Pulse Ox 97.9 F 72 16 154/80 H 98 07/26/18 20:00 07/26/18 20:00 07/26/18 20:00 07/26/18 20:00 07/26/18 20:00 no acute distress - *Routine HEENT Exam Head: Present: normocephalic, atraumatic Eye: Present: EOMI, PERRL ENT: Present: mucous membranes moist - *Routine Neck Exam Present: supple - *Routine Respiratory Exam Present: CTA bilaterally. Absent: prolonged expiratory phase, wheezes, crackles - *Routine Cardiovascular Exam Present: RRR, Normal S1, Normal S2 - *Routine Abdominal Exam Present: soft - *Routine Rectal Exam Patient deferred: visual exam - *Routine Exam Patient deferred: penile exam - *Routine Extremities Exam Absent: cyanosis, clubbing, edema Comments: left foot in bandage post debridement, no erythema on leg - *Routine Skin Exam Present: intact. Absent: cyanosis, erythema - *Routine Neurological Exam Present: alert, oriented X3, altered mental status Results Labs on day of discharge: Labs from last 24 hours 07/26/18 07/26/18 07/26/18 16:33 11:29 07:08 WBC 9.0 RBC 4.96 Hgb 13.4 L Hct 41.5 L MCV 83.8 MCH 27.0 MCHC 32.2 RDW 13.9 Plt Count 307 MPV 7.6 Neut % (Auto) 70.2 Lymph % (Auto) 19.3 [place] % (Auto) 6.8 Eos % (Auto) 3.1 Baso % (Auto) 0.7 Neut # (Auto) 6.3 Lymph # (Auto) 1.7 [place] # (Auto) 0.6 Eos # (Auto) 0.3 Baso # (Auto) 0.1 POC Glucose 227 H 185 H 07/26/18 07/25/18 06:00 20:25 WBC RBC Hgb Hct MCV MCH MCHC RDW Plt Count MPV Neut % (Auto) Lymph % (Auto) [place] % (Auto) Eos % (Auto) Baso % (Auto) Neut # (Auto) Lymph # (Auto) [place] # (Auto) Eos # (Auto) Baso # (Auto) POC Glucose 89 205 H Preliminary micro results at discharge 07/25/18 13:45 Wound Culture - Preliminary Foot,Left Gram Positive Cocci DS: Diagnosis - Discharge Diagnosis (1) Cellulitis of left foot Status: Acute (2) Ulcer of left foot due to type 2 diabetes mellitus Status: Acute (3) Venous insufficiency (chronic) (peripheral) Status: Acute (4) Obesity, Class II, BMI 35-39.9 Status: Acute (5) Diabetes mellitus Status: Acute Discharge Plan - Patient Discharge Instructions ACTIVITY: Other (no wt bearing on surgical sites) DIET: diabetic diet Patient Instructions: DI for Cellulitis -- Adult - Follow up Plan Follow up with: Theresa Morales DPM [Staff Physician] - Duncan Mullen MD [Primary Care Provider] - Disposition: Home, Self-Jail Medications: Home Medications Medication Instructions Recorded Confirmed Type Aspirin [Aspirin 325mg Tab] 325 mg PO DAILY 10/18/17 07/25/18 History Atorvastatin Calcium [Atorvastatin 20 mg PO HS 10/18/17 07/25/18 History 20mg Tab] Levothyroxine Sodium 250 mcg PO DAILY 10/18/17 07/25/18 History [Levothyroxine 125mcg (0.125mg) Tab] Lisinopril [Lisinopril 40mg Tablet] 40 mg PO HS 10/18/17 07/25/18 History Metformin HCl [Glucophage 500mg 1,000 mg PO BID 10/18/17 07/25/18 History Tablet] insulin glargine 100 44 units SUB-Q QAM ml 01/29/18 07/26/18 History unit-lixisenatide 33 mcg/mL subcutaneous pen Insulin Aspart [Novolog Flexpen] 0 units SQ ACHS 07/26/18 07/26/18 History Prescriptions/Medication Reconciliation: New Collagenase Clostridium Hist. [Santyl Ointment 30gm] 0 gm TP DAILY tube Continue insulin glargine 100 unit-lixisenatide 33 mcg/mL subcutaneous pen 44 units SUB-Q QAM ml Aspirin [Aspirin 325mg Tab] 325 mg PO DAILY Levothyroxine Sodium [Levothyroxine 125mcg (0.125mg) Tab] 250 mcg PO DAILY Lisinopril [Lisinopril 40mg Tablet] 40 mg PO HS Atorvastatin Calcium [Atorvastatin 20mg Tab] 20 mg PO HS Metformin HCl [Glucophage 500mg Tablet] 1,000 mg PO BID Insulin Aspart [Novolog Flexpen] 0 units SQ ACHS
--- NOTE | 2018-07-27 08:16 | Progress Note ---
Subjective Date: 07/27/18 Time: 07:45 Principal diagnosis: Left foot DM ulcer Interval history: Patient is resting comfortably and denies pain to the left lower extremity. Denies N/V, F/C, SOB/CP. PN: Obj Ex Vital signs: Temp Pulse Resp BP Pulse Ox 97.9 F 70 16 146/76 H 94 L 07/27/18 04:00 07/27/18 04:00 07/27/18 04:00 07/27/18 04:00 07/27/18 04:00 - Constitutional no acute distress - Routine HEENT Exam Head: Present: normocephalic - Routine Respiratory Exam Present: CTA bilaterally - Routine Cardiovascular Exam Present: RRR - Routine Extremities Exam Present: edema, pulses intact, normal capillary refill - Detailed Lower Extremity Exam Comments: Overall LLE is improving. Decreased edema and erythema noted. No necrotic tissue or eschar intact to left hallux Progress Note: A&P (1) Cellulitis of left foot Status: Acute Current Visit: Yes (2) Ulcer of left foot due to type 2 diabetes mellitus Status: Acute Current Visit: Yes (3) Venous insufficiency (chronic) (peripheral) Status: Acute Current Visit: Yes (4) Obesity, Class II, BMI 35-39.9 Status: Acute Current Visit: Yes (5) Diabetes mellitus Status: Acute Current Visit: Yes Assessment and Plan for All Diagnoses:: Left Foot Cellulitis and Infected Wound: left hallux and sub 5th met ulcer Debridement: The wound was cleansed with betadine. Utilizing a 15 blade, the wound was sharply excisionally debrided through skin into sub q layer. Biofilm and fibrotic slough were debrided. The wound did not probe thru deep fascia and into the bone. There was no drainage and no purulence noted. Post-debridement the left hallux wound base was: 50% granular, 50% fibrotic, and measured 2.7 x 2.3 x 0.1 cm. . Post-debridement the left sub 5th met wound base was: 50% fibrotic and 50% granular measured 2.1 x 1.8 x 0.2 cm. Overall the LLE is improving. MRI (-) OM. 1. Dressing applied: Santyl dry sterile dressing; Unna boot applied to LLE 2. Maintain Unna boot intact until follow up 3. PWB in post op shoe with DME assistance; needs walker 4. PICC, IV Abx 5. Sonia daily dsg changes. Patient educated on dsg changes. Can do changes at infusion clinic with IV Abx: SUMMER carvalho 6. Okay from Podiatry standpoint to be discharged home 7. Follow up in 5-7 days
== END 2018-07-27 10:58 | disposition home or self-care (01) ==
LOC: 2ND
PROVIDERS: ADMIT Internal Medicine Adolescent Medicine; ATTEND Internal Medicine Adolescent Medicine

== ENCOUNTER → 2018-07-28 10:08 | Outpatient (CLI) | payer BC, SELFPAY ==
[2018-07-28 11:23] VITALS: BP 168/76; PULSE 78; RESP 16; TEMP 36.2; O2SAT 97; BMI 34.8
--- NOTE | 2018-07-28 11:54 | PC.NURSE ---
PATIENT ASKED FOR ASSISTANCE CHANGING HIS BANDAGE WHICH HE HAD REMOVED LAST NIGHT TO TAKE A SHOWER. OLD BANDAGE WAS REMOVED AND APPLIED SANTYL OINTMENT, TELFA, KERLIX, AND COBAN.
[2018-07-28 12:15] VITALS: BP 140/86; PULSE 71; RESP 18; TEMP 36.8; O2SAT 94
== END ==
PROVIDERS: PCP Internal Medicine Adolescent Medicine; Visit Provider Internal Medicine Adolescent Medicine
DX: Z48.00 Encounter for change or removal of nonsurgical wound dressing (principal); L03.116 Cellulitis of left lower limb
CPT/HCPCS: 96365; G0463; J0878

== ENCOUNTER → 2018-07-29 09:30 | Outpatient (CLI) | payer BC, SELFPAY ==
[2018-07-29 09:30] VITALS: BP 179/74; PULSE 77; RESP 16; TEMP 36.7; O2SAT 97
[2018-07-29 10:01] VITALS: BMI 34.9
[2018-07-29 10:02] VITALS: BP 144/79; PULSE 71; RESP 18; O2SAT 98
== END ==
PROVIDERS: PCP Internal Medicine Adolescent Medicine; Visit Provider Internal Medicine Adolescent Medicine
DX: E11.621 Type 2 diabetes mellitus with foot ulcer (principal); L03.116 Cellulitis of left lower limb
CPT/HCPCS: G0463; J0878

== ENCOUNTER 2018-07-30 09:28 | Outpatient (CLI) | payer BC, SELFPAY ==
[2018-07-30 09:43] VITALS: BP 143/69; PULSE 78; RESP 18; TEMP 36.4; O2SAT 98
[2018-07-30 10:13] VITALS: BP 141/62; PULSE 79; RESP 18; O2SAT 97
[2018-07-30 10:35] VITALS: BP 145/64; PULSE 74; RESP 18; O2SAT 97
== END 2018-07-30 10:40 | disposition home or self-care (01) ==
LOC: INF 09:28
PROVIDERS: Visit Provider Internal Medicine Adolescent Medicine
DX: E11.621 Type 2 diabetes mellitus with foot ulcer (principal); L03.116 Cellulitis of left lower limb
CPT/HCPCS: 96365; J0878

== ENCOUNTER 2018-07-31 09:58 | Outpatient (CLI) | payer BC, SELFPAY ==
[2018-07-31 10:15] VITALS: BP 157/70; PULSE 68; RESP 20; TEMP 36.9; O2SAT 95
[2018-07-31 10:50] VITALS: BP 152/74; PULSE 74; RESP 20; TEMP 36.9; O2SAT 95
== END 2018-07-31 11:00 | disposition home or self-care (01) ==
LOC: INF 09:58
PROVIDERS: Visit Provider Internal Medicine Adolescent Medicine
DX: L03.116 Cellulitis of left lower limb (principal)
CPT/HCPCS: 96365; J0878

== ENCOUNTER 2018-08-01 09:50 | Outpatient (CLI) | payer BC, SELFPAY ==
[2018-08-01 10:35] VITALS: BP 166/74; PULSE 72; RESP 18; TEMP 36.9
[2018-08-01 11:05] VITALS: BP 148/79; PULSE 65; RESP 18
[2018-08-01 11:15] VITALS: BP 148/78; PULSE 66; RESP 18
== END 2018-08-01 11:30 | disposition home or self-care (01) ==
LOC: INF 09:54
PROVIDERS: Visit Provider Internal Medicine Adolescent Medicine
DX: E11.621 Type 2 diabetes mellitus with foot ulcer (principal); L03.116 Cellulitis of left lower limb
CPT/HCPCS: 96365; J0878

== ENCOUNTER 2018-08-02 11:27 | Outpatient (CLI) | payer BC, SELFPAY ==
[2018-08-02 11:43] VITALS: BP 150/83; PULSE 71; RESP 18; TEMP 36.6; O2SAT 100
[2018-08-02 12:35] VITALS: BP 149/85; PULSE 76; RESP 18; O2SAT 99
== END 2018-08-02 12:35 | disposition home or self-care (01) ==
LOC: INF 11:27
PROVIDERS: Visit Provider Internal Medicine Adolescent Medicine
DX: L03.116 Cellulitis of left lower limb (principal)
CPT/HCPCS: 96365; J0878

== ENCOUNTER 2018-08-03 09:30 | Outpatient (CLI) | payer BC, SELFPAY ==
[2018-08-03 09:41] VITALS: BMI 35.4
[2018-08-03 09:50] VITALS: BP 155/78; PULSE 72; RESP 18; TEMP 36.2; O2SAT 100
[2018-08-03 10:06] LABS: Basophils # 0.1 K/mm3 (0-0.2); Basophils % 0.7 % (0.1-2.0); Eosinophils # 0.2 K/mm3 (0.0-0.4); Eosinophils % 1.8 % (0.1-12.0); Hematocrit 40.7 % (42.0-52.0); Lymphocytes # 1.8 K/mm3 (0.7-4.5); Lymphocytes % 15.7 % (10-50); Mean Corpuscular Hemoglobin 27.1 pg (27.0-31.2); Mean Corpuscular Volume 84.7 fl (80-94); Mean Platelet Volume 7.7 fl (7.4-10.4); Monocytes # 0.5 K/mm3 (0.1-1.0); Monocytes % 4.7 % (1.7-9.3); Neutrophils # 8.9 K/mm3 (1.8-7.8); Neutrophils % 77.1 % (37.0-80.0); Platelet Count 311 K/mm3 (142-424); Red Blood Count 4.81 M/mm3 (4.60-6.20); Red Cell Distribution Width 14.4 % (11.5-17.5); White Blood Count 11.5 K/mm3 (4.8-10.8)
[2018-08-03 10:11] LABS: Anion Gap 10.4 mEq/L (5-15); Blood Urea Nitrogen 23 mg/dL (7-18); Calcium 8.8 mg/dL (8.5-10.1); Carbon Dioxide 29 mmol/L (21.0-32.0); Chloride 103 mmol/L (98-107); Creatinine Clearance Estimated 117 mL/min (50-200); Creatinine,Serum 1.19 mg/dL (0.70-1.30); Estimated Glomerular Filt Rate 62 ml/min (>60); GFR (African American) 75 ML/MIN (>60); Glucose 157 mg/dL (74-106); Potassium 4.4 mmoL/L (3.5-5.1); Sodium 138 mmol/L (136-145)
[2018-08-03 10:20] VITALS: BP 151/71; PULSE 69; RESP 18
== END 2018-08-03 10:50 | disposition home or self-care (01) ==
LOC: INF 09:40
PROVIDERS: Visit Provider Internal Medicine Adolescent Medicine
DX: L03.116 Cellulitis of left lower limb (principal); B95.62 Methicillin resistant Staphylococcus aureus infection as the cause of diseases classified elsewhere
CPT/HCPCS: 80048; 85025; 96365; J0878

== ENCOUNTER 2018-08-04 09:47 | Outpatient (CLI) | payer BC, SELFPAY ==
[2018-08-04 10:00] VITALS: BMI 35.3
[2018-08-04 10:05] VITALS: BP 152/78; PULSE 66; RESP 17; TEMP 36.6; O2SAT 98
[2018-08-04 10:45] VITALS: BP 140/72; PULSE 66; RESP 16; O2SAT 98
== END 2018-08-04 10:45 | disposition home or self-care (01) ==
PROVIDERS: Visit Provider Internal Medicine Adolescent Medicine
DX: L03.116 Cellulitis of left lower limb (principal)
CPT/HCPCS: 96365; J0878

== ENCOUNTER 2018-08-05 11:46 | Outpatient (CLI) | payer BC, SELFPAY ==
[2018-08-05 11:49] VITALS: BMI 35.3
[2018-08-05 11:56] VITALS: BP 136/83; PULSE 73; RESP 16; TEMP 36.4; O2SAT 98
[2018-08-05 12:30] VITALS: BP 136/83; PULSE 67; RESP 18; O2SAT 97
== END 2018-08-05 12:33 | disposition home or self-care (01) ==
PROVIDERS: PCP Internal Medicine Adolescent Medicine; Visit Provider Internal Medicine Adolescent Medicine
DX: L03.116 Cellulitis of left lower limb (principal)
CPT/HCPCS: 96365; J0878

== ENCOUNTER 2018-08-06 09:26 | Outpatient (CLI) | payer BC, SELFPAY ==
[2018-08-06 10:05] VITALS: BP 134/76; PULSE 67; RESP 18; O2SAT 96
[2018-08-06 10:35] VITALS: BP 155/86; PULSE 71; RESP 18; O2SAT 98
== END 2018-08-06 10:35 | disposition home or self-care (01) ==
LOC: INF 09:27
PROVIDERS: PCP Internal Medicine Adolescent Medicine; Visit Provider Internal Medicine Adolescent Medicine
DX: L03.116 Cellulitis of left lower limb (principal)
CPT/HCPCS: 96365; J0878

== ENCOUNTER 2018-08-07 09:54 | Outpatient (CLI) | payer BC, SELFPAY ==
[2018-08-07 10:05] VITALS: BP 168/80; PULSE 84; RESP 18; O2SAT 97
[2018-08-07 11:05] VITALS: BP 136/71; PULSE 74; RESP 18; TEMP 36.8; O2SAT 95
== END 2018-08-07 11:05 | disposition home or self-care (01) ==
LOC: INF 09:54
PROVIDERS: Visit Provider Internal Medicine Adolescent Medicine
DX: E11.621 Type 2 diabetes mellitus with foot ulcer (principal); L03.116 Cellulitis of left lower limb
CPT/HCPCS: 96365; J0878

== ENCOUNTER 2018-08-08 10:05 | Outpatient (CLI) | payer BC, SELFPAY ==
[2018-08-08 10:10] VITALS: BP 154/77; PULSE 69; RESP 18; TEMP 36.4; O2SAT 100
[2018-08-08 10:40] VITALS: BP 149/72; PULSE 67; RESP 18; O2SAT 99
[2018-08-08 11:00] VITALS: BP 150/78; PULSE 65; RESP 18; O2SAT 99
== END 2018-08-08 11:05 | disposition home or self-care (01) ==
LOC: INF 10:05
PROVIDERS: Visit Provider Internal Medicine Adolescent Medicine
DX: E11.621 Type 2 diabetes mellitus with foot ulcer (principal); L03.116 Cellulitis of left lower limb
CPT/HCPCS: 96365; J0878

== ENCOUNTER 2018-08-09 09:45 | Outpatient (CLI) | payer BC, SELFPAY ==
[2018-08-09 10:15] VITALS: BP 153/76; PULSE 68; RESP 18; TEMP 36.7
[2018-08-09 10:45] VITALS: BP 144/76; PULSE 68; RESP 18
[2018-08-09 11:00] VITALS: BP 154/88; PULSE 70; RESP 18
== END 2018-08-09 11:30 | disposition home or self-care (01) ==
LOC: INF 09:54
PROVIDERS: Visit Provider Internal Medicine Adolescent Medicine
DX: E11.621 Type 2 diabetes mellitus with foot ulcer (principal); L03.116 Cellulitis of left lower limb
CPT/HCPCS: 96365; J0878

== ENCOUNTER 2018-08-16 08:50 | Outpatient (CLI) | payer BC, SELFPAY ==
[2018-08-16 09:25] LABS: Basophils # 0.1 K/mm3 (0-0.2); Basophils % 0.8 % (0.1-2.0); Eosinophils # 0.3 K/mm3 (0.0-0.4); Hematocrit 39.5 % (42.0-52.0); Hemoglobin 12.7 g/dL (14.1-18.0); Lymphocytes # 1.5 K/mm3 (0.7-4.5); Lymphocytes % 18.4 % (10-50); Mean Corpuscular HGB Conc 32.2 g/dL (31.8-35.4); Mean Corpuscular Hemoglobin 27.6 pg (27.0-31.2); Mean Corpuscular Volume 85.7 fl (80-94); Mean Platelet Volume 8.4 fl (7.4-10.4); Monocytes # 0.5 K/mm3 (0.1-1.0); Monocytes % 6.4 % (1.7-9.3); Neutrophils # 5.7 K/mm3 (1.8-7.8); Neutrophils % 70.4 % (37.0-80.0); Platelet Count 230 K/mm3 (142-424); Red Cell Distribution Width 14.7 % (11.5-17.5)
[2018-08-16 09:42] LABS: Anion Gap 11.3 mEq/L (5-15); Blood Urea Nitrogen 22 mg/dL (7-18); Calcium 8.8 mg/dL (8.5-10.1); Carbon Dioxide 29 mmol/L (21.0-32.0); Chloride 102 mmol/L (98-107); Creatinine,Serum 0.87 mg/dL (0.70-1.30); Estimated Glomerular Filt Rate 89 ml/min (>60); GFR (African American) 108 ML/MIN (>60); Glucose 226 mg/dL (74-106); Potassium 4.3 mmoL/L (3.5-5.1); Sodium 138 mmol/L (136-145)
[2018-08-16 10:14] LABS: Erythrocyte Sedimentation Rate 21 mm/hr (0-20)
[2018-08-16 14:50] VITALS: BMI 34.9
== END 2018-08-16 14:45 | disposition home or self-care (01) ==
LOC: LAB 08:51 → INF 09:26
PROVIDERS: Visit Provider Podiatrist
DX: Z45.2 Encounter for adjustment and management of vascular access device (principal); E11.621 Type 2 diabetes mellitus with foot ulcer; L03.116 Cellulitis of left lower limb; L97.529 Non-pressure chronic ulcer of other part of left foot with unspecified severity
CPT/HCPCS: 80048; 85025; 85651; 86140; G0463

== ENCOUNTER → 2018-09-13 14:36 | Outpatient (CLI) | payer BC, SELFPAY ==
[2018-09-13 16:31] LABS: Anion Gap 13.3 mEq/L (5-15); Blood Urea Nitrogen 32 mg/dL (7-18); Calcium 9.3 mg/dL (8.5-10.1); Carbon Dioxide 29 mmol/L (21.0-32.0); Chloride 103 mmol/L (98-107); Creatinine,Serum 1.23 mg/dL (0.70-1.30); Estimated Glomerular Filt Rate 60 ml/min (>60); GFR (African American) 72 ML/MIN (>60); Glucose 251 mg/dL (74-106); Potassium 5.3 mmoL/L (3.5-5.1); Sodium 140 mmol/L (136-145)
== END ==
PROVIDERS: Visit Provider Nurse Practitioner Family
DX: I10 Essential (primary) hypertension (principal)
CPT/HCPCS: 36415; 80048

== ENCOUNTER → 2018-10-01 13:43 | Outpatient (CLI) | payer BC, SELFPAY ==
--- NOTE | 2018-10-01 13:56 | XR_ITS ---
XR foot wt bearing LT 3V Ordering Physician: Theresa Morales DPM Patient Age: 63 years: Male HISTORY: ITS.REASON: DM ulcer Diabetic ulcer left great toe lateral foot TECHNIQUE: 3 views left foot weightbearing COMPARISON :July 25, 2018 left foot FINDINGS Sob or dressing is in place. There is a slight ill-defined appearance to the distal tuft cortex of the great toe more evident than on the previous July 2018 study if pain and inflammation here inflammation would be concern regarding possible osseous involvement, possible possible early osteomyelitis at tip of great toe. Clinical correlation required. History suggest a soft tissue ulcer and slightly less at fifth toe. Osseous structures of the fifth toe appear intact. Metatarsals intact. Midfoot intact. The remainder of foot unremarkable IMPRESSION: 1.. Slight additional roughening & irregularity is seen at the tip of distal tuft of great toe. Compared to July . Requires correlation. Radiographic concern regarding possible early osteomyelitis. Warrants close follow-up or further investigation 2. The fifth toe appears intact.. Remainder of foot satisfactory..
[2018-10-01 14:06] LABS: Basophils # 0.1 K/mm3 (0-0.2); Basophils % 0.7 % (0.1-2.0); Eosinophils # 0.4 K/mm3 (0.0-0.4); Eosinophils % 3.5 % (0.1-12.0); Hematocrit 42.5 % (42.0-52.0); Hemoglobin 13.5 g/dL (14.1-18.0); Lymphocytes # 1.5 K/mm3 (0.7-4.5); Lymphocytes % 13.4 % (10-50); Mean Corpuscular HGB Conc 31.8 g/dL (31.8-35.4); Mean Corpuscular Hemoglobin 26.8 pg (27.0-31.2); Mean Corpuscular Volume 84.3 fl (80-94); Mean Platelet Volume 7.7 fl (7.4-10.4); Monocytes # 0.7 K/mm3 (0.1-1.0); Monocytes % 6.1 % (1.7-9.3); Neutrophils # 8.3 K/mm3 (1.8-7.8); Neutrophils % 76.4 % (37.0-80.0); Platelet Count 360 K/mm3 (142-424); Red Blood Count 5.04 M/mm3 (4.60-6.20); Red Cell Distribution Width 14.4 % (11.5-17.5); White Blood Count 10.9 K/mm3 (4.8-10.8)
[2018-10-01 15:07] LABS: Erythrocyte Sedimentation Rate 71 mm/hr (0-20)
[2018-10-01 15:15] LABS: Hemoglobin A1C 7.5 % (0.0-7.0)
[2018-10-01 15:19] LABS: Alanine Aminotransferase 19 U/L (12-78); Albumin/Globulin Ratio 0.8 (1.1-1.8); Alkaline Phosphatase 116 U/L (46-116); Anion Gap 12.9 mEq/L (5-15); Aspartate Amino Transferase 13 U/L (15-37); Bilirubin,Total 0.4 mg/dL (0.2-1.0); Blood Urea Nitrogen 22 mg/dL (7-18); C-Reactive Protein 7.5 mg/L (0.0-0.9); Calcium 9.1 mg/dL (8.5-10.1); Carbon Dioxide 32 mmol/L (21.0-32.0); Chloride 101 mmol/L (98-107); Creatinine,Serum 0.98 mg/dL (0.70-1.30); Estimated Glomerular Filt Rate 78 ml/min (>60); GFR (African American) 94 ML/MIN (>60); Glucose 296 mg/dL (74-106); Potassium 4.9 mmoL/L (3.5-5.1); Sodium 141 mmol/L (136-145)
== END ==
PROVIDERS: PCP Internal Medicine Adolescent Medicine; Visit Provider Podiatrist
DX: E11.621 Type 2 diabetes mellitus with foot ulcer (principal); L97.529 Non-pressure chronic ulcer of other part of left foot with unspecified severity; Z51.89 Encounter for other specified aftercare; E11.9 Type 2 diabetes mellitus without complications
CPT/HCPCS: 36415; 73630; 80053; 83036; 85025; 85651; 86140

== ENCOUNTER → 2019-07-26 08:52 | Outpatient (CLI) | payer BC, SELFPAY ==
[2019-07-26 10:21] LABS: Alanine Aminotransferase 20 U/L (12-78); Albumin Level 3.5 gm/dL (3.4-5.0); Albumin/Globulin Ratio 1.1 (1.1-1.8); Alkaline Phosphatase 93 U/L (46-116); Anion Gap 12.7 mEq/L (5-15); Aspartate Amino Transferase 14 U/L (15-37); Bilirubin,Total 0.5 mg/dL (0.2-1.0); Blood Urea Nitrogen 32 mg/dL (7-18); Calcium 8.6 mg/dL (8.5-10.1); Carbon Dioxide 31 mmol/L (21.0-32.0); Chloride 104 mmol/L (98-107); Cholesterol 133 mg/dL (140-200); Creatinine,Serum 1.35 mg/dL (0.70-1.30); Estimated Glomerular Filt Rate 53 ml/min (>60); GFR (African American) 65 ML/MIN (>60); Globulin 3.1 gm/dl (1.3-3.2); Glucose 127 mg/dL (74-106); HDL Cholesterol 44 mg/dL (27-67); LDL Cholesterol 73 mg/dL (0-130); Potassium 4.7 mmoL/L (3.5-5.1); Sodium 143 mmol/L (136-145); Thyroid Stimulating Hormone 0.13 uIU/ml (0.358-3.740); Total Protein,Serum 6.6 gm/dL (6.4-8.2); Triglycerides 79 mg/dL (30-200); VLDL Cholesterol 16 mg/dL (0-40)
[2019-07-26 10:53] LABS: Hemoglobin A1C 7.3 % (0.0-7.0)
== END ==
PROVIDERS: Visit Provider Nurse Practitioner Family
DX: E11.51 Type 2 diabetes mellitus with diabetic peripheral angiopathy without gangrene (principal); E03.9 Hypothyroidism, unspecified; Z79.4 Long term (current) use of insulin
CPT/HCPCS: 36415; 80053; 80061; 83036; 84443

== ENCOUNTER → 2020-09-01 09:49 | Outpatient (CLI) | payer BC, SELFPAY ==
[2020-09-01 11:28] LABS: Thyroid Stimulating Hormone 0.05 uIU/mL (0.465-4.68)
[2020-09-01 11:31] LABS: Chloride 100 mmol/L (98-107); Sodium 139 mmol/L (136-145)
[2020-09-01 11:32] LABS: Potassium 4.9 mmoL/L (3.5-5.1)
[2020-09-01 11:34] LABS: Alanine Aminotransferase 14 U/L (12-78); Albumin/Globulin Ratio 1.4 (1.1-1.8); Alkaline Phosphatase 101 U/L (38-126); Anion Gap 11.9 mEq/L (5-15); Aspartate Amino Transferase 20 U/L (17-59); Bilirubin,Total 0.6 mg/dl (0.2-1.3); Blood Urea Nitrogen 34 mg/dl (9-20); Carbon Dioxide 32 mmol/L (22.0-30.0); Cholesterol 136 mg/dl (140-200); Estimated Glomerular Filt Rate 61 ml/min (>60); GFR (African American) 74 ML/MIN (>60); Globulin 2.9 g/dL (1.3-3.2); Total Protein,Serum 6.9 g/dl (6.3-8.2); Triglycerides 103 mg/dl (30-150); VLDL Cholesterol 21 mg/dL (0-40)
[2020-09-01 11:35] LABS: Calcium 9.9 mg/dl (8.4-10.2); Chol/HDL Ratio 3.3 (1-3.5); Glucose 171 mg/dl (74-100); HDL Cholesterol 41 mg/dl (40-60)
[2020-09-01 11:46] LABS: Direct LDL Cholesterol 74.71 mg/dL (100-129)
[2020-09-01 13:00] LABS: Hemoglobin A1C 7.2 % (4.0-6.0)
== END ==
PROVIDERS: Visit Provider Nurse Practitioner Family
DX: E11.51 Type 2 diabetes mellitus with diabetic peripheral angiopathy without gangrene (principal); E78.5 Hyperlipidemia, unspecified; E03.9 Hypothyroidism, unspecified
CPT/HCPCS: 36415; 80053; 80061; 83036; 84443

== ENCOUNTER 2022-09-05 13:34 | Outpatient (CLI) | payer OTHER, SELFPAY ==
[2022-09-05 14:10] VITALS: BP 158/77; PULSE 78; RESP 18; TEMP 36.4; O2SAT 98
[2022-09-08 03:37] LABS: HIV Screen 4th Generation wRfx Non Reactive; Hep A Ab, IgM Negative
[2022-09-08 03:38] LABS: Hepatitis B Core Antibody IgM Negative; Hepatitis B Surface Antigen Negative; Hepatitis C Antibody <0.1
== END 2022-09-05 14:30 | disposition home or self-care (01) ==
PROVIDERS: Nurse Practitioner Family; PCP Internal Medicine Adolescent Medicine; Visit Provider Internal Medicine Adolescent Medicine
DX: A53.9 Syphilis, unspecified (principal); Z11.4 Encounter for screening for human immunodeficiency virus [HIV]
CPT/HCPCS: 36415; 80074; 86703; 96372; G0432; J0561

== ENCOUNTER 2023-10-25 08:04 | Day surgery (SDC) | payer MEDICARE, SELFPAY ==
[2023-10-24 13:44] VITALS: BMI 34.9
[2023-10-25 09:29] VITALS: BP 168/88; PULSE 66; RESP 17; TEMP 36.3; O2SAT 96
[2023-10-25] MEDS: LACTATED RINGERS 1000ML 1,000 ML 25 ML IV (09:40)
--- NOTE | 2023-10-25 10:03 | EXP.ANES.CKL ---
[facility] Disclaimer: The information contained in this section may have been updated after the patient was seen, as this information can be updated by other users. Medical History Hyperlipidemia Hypertension Surgical History History of amputation Family History Other Family history of cancer Social History Smoking Status: Former smoker second hand exposure: No alcohol intake: never substance use type: denies use current occupational status: retired Travel in the last 8 weeks: None household members: none housing: house current occupational exposures/hazards: No caffeine: No [facility] Anesthesia Checklist Patient Identification Patient Identification: Arm Band and Verbal (Name & ) Structural Data Admitted From: Home Planned Operative Procedure/s: Colonoscopy Consent for Planned Operative Procedure(s) Verified: Yes NPO Status Verified Time NPO: 00:00 Additional verifications Anesthesia Reactions: No Airway Assessment Mallampati Score:: Class II C-Spine Mobility Assessed: Yes TMJ Mobility Assessed: Yes Dentition: Poor Dentition Neurological Assessment Level of Consciousness: Awake Hx Seizures: No Numbness or tingling in extremities: No Anesthesia Plan Anesthesia Risk discussed: Yes Anesthesia Plan: Verified ASA Class: II Anesthesia Type: MAC
[2023-10-25 10:28] VITALS: O2SAT 96
[2023-10-25 10:52] VITALS: BP 111/60; PULSE 61; RESP 14; TEMP 36.2; O2SAT 92
--- NOTE | 2023-10-25 10:57 | P.PCN_ITS ---
Procedure: Date: 10/25/23 Patient Date of :: 1955 Procedure Performed:: Colonoscopy Indications:: The patient is a 68-year-old who presents for surveillance colonoscopy for history of colon polyps in the past. Performing Provider:: Carlito Anne MD Referring Provider:: Ivan Mullen MD Sedation:: See RN records Procedure:: After placing the patient in the left lateral decubitus position, the colonosc opy was gently inserted into the rectum and under direct visualization advanced to the cecum which was identified by transillumination in the right lower quadrant, identification of the ileocecal valve, appendiceal orifice, and cecal strap. Color, texture, mucosa, and anatomy of the colon were carefully examined with the scope. Findings:: The quality of the bowel preparation was fair. Quality of the bowel preparation in the left colon was fair to poor. Time was spent irrigating and cleansing mucosa. There was a small (4 to 6 mm) sessile polyp in the cecum. The polyp was removed by cold snare polypectomy. Resection was complete and the polyp was retrieved. The remaining colon appeared normal. On retroflexion view internal hemorrhoids were seen in the rectum Recommendations:: Await pathology Repeat colonoscopy in 3 years Complications:: None Estimated blood obtained (mL): 0 Colonoscopy Component Colonoscopy Component Was a colonoscopy performed during today's procedure?: Yes Recommended follow up colonoscopy of at least 10 years?: Yes
[2023-10-25 11:02] VITALS: BP 110/68; PULSE 62; RESP 16; O2SAT 92
[2023-10-25 11:12] VITALS: BP 129/83; PULSE 65; RESP 16; O2SAT 94
[2023-10-25 11:24] VITALS: BP 150/71; PULSE 61; RESP 18; O2SAT 94
[2023-10-25 12:31] LABS: POC Glucose,Bedside 133 (70-110)
== END 2023-10-25 11:28 | disposition home or self-care (01) ==
PROVIDERS: PCP Internal Medicine Adolescent Medicine; Visit Provider Internal Medicine
PROC: (CPT 45385; principal; 2023-10-25 10:30)
DX: Z12.11 Encounter for screening for malignant neoplasm of colon (principal); Z86.010 Personal history of colon polyps; K64.8 Other hemorrhoids; D12.0 Benign neoplasm of cecum; Z79.899 Other long term (current) drug therapy
CPT/HCPCS: 45385; 82962; 88305

== ENCOUNTER 2025-08-12 13:00 | Outpatient (CLI) | payer MEDICARE, SELFPAY ==
--- OUTSIDE RECORDS SUMMARY | 2020-05-28 11:13 | XMS_ITS | Encounter Summary ---
Author Organization [facility] Address [address] [place] [address] Care Team Providers Care Extruder Operator Multiple Name Role Phone Duncan Mullen MD Primary Care Provider [phone] Reason for Visit * Diagnostic Imaging (Routine) - Closed Specialty Diagnoses / Procedures Referred By Elías norris Referred To Contact Radiology Diagnoses Thyroid cancer Procedures US Thyroid Lindsay Gallegos PA [address] [address] Phone: tel: fax: [facility] [address] [address] Phone: tel: fax: Referral ID Status Reason Start Date Expiration Date Visits Re quested Visits Authorized [id number] Closed 05/28/2020 05/28/2021 1 1 Encounter Details Date Type Department Care Team (Late st Contact Info) Description 05/28/2020 12:13 PM EDT Hospital Encounter [facility] [address] [address] Thyroid cancer Social History Tobacco Use Types Packs/Day Years Used Date Smoking Tobacco: Former Cigars Passive Smoke Exposure: Past Smokeless Tobacco: Never Alcohol Use Standard Drinks/Week Comments Never 0 (1 standard drink = 0.6 oz pur e alcohol) AUDIT-C Answer Date Recorded Q1: How often do you have a drink containing alc ohol? Never 05/28/2020 Average Number of Drinks Not on file 020 Frequency of Binge Drinking Not on file 05/14 Sex and Gender Information Value Date Recorded Sex Assigned at Not on file Legal Sex Male 11:31 AM EDT Gender Identity Not on file Sexual Orientation Not on file documented as of this encounter Plan of Treatment Upcoming Encounters Date Type Department Care Team (Late st Contact Info) Description 12/03/2025 10:30 AM EDT Office Visit [facility] [address] [facility] [address] [place] [address] Christiano Darby MD [address] [facility] [address] [place] [address] documented as of this encounter Procedures Procedure Name Priority Date/Time Associated Diagnosis Comments US THYROID Routine 05/28/2020 12:13 PM EDT Thyroid cancer documented in this encounter Results * US Thyroid (05/28/2020 12:13 PM EDT) Narrative SYSTEMGENERATED, DOCUMENTATION - 05/28/2020 12:13 PM EDT Please see performing physician's note for result. us Lindsay DE LA PAZ IMG US ORDERABLES Final R esult documented in this encounter Visit Diagnoses Diagnosis Thyroid cancer Malignant neoplasm of thyroid gland documented in this encounter Care Teams Extruder Operator Multiple Relationship Specialty Start Date End Date Duncan Mullen MD [facility] [address] [place] [address] PCP - General Adolescent Medicine 05/28/20 documented as of this encounter
--- OUTSIDE RECORDS SUMMARY | 2021-07-05 09:41 | XMS_ITS | Encounter Summary ---
Author Organization [facility] Address [address] [place] [address] Care Team Providers Care Fire Tender Name Role Phone Duncan Mullen MD Primary Care Provider [phone] Reason for Visit * Diagnostic Imaging (Routine) - Closed Specialty Diagnoses / Procedures Referred By Elías norris Referred To Contact Radiology Diagnoses Postsurgical hypothyroidism History of thyroid cancer Procedures US Thyroid Lindsay Gallegos PA [address] [address] Phone: tel: fax: [facility] [address] [address] Phone: tel: fax: Referral ID Status Reason Start Date Expiration Date Visits Re quested Visits Authorized [id number] Closed 07/05/2021 07/05/2022 1 1 Encounter Details Date Type Department Care Team (Late st Contact Info) Description 07/05/2021 9:41 AM EST Hospital Encounter [facility] [address] [phone] Social History Tobacco Use Types Packs/Day Years [...] Description 12/03/2025 10:30 AM EDT Office Visit [facility] [address] [facility] [address] [place] [address] Christiano Darby MD [address] [facility] [address] [place] [address] documented as of this encounter Procedures Procedure Name Priority Date/Time Associated Diagnosis Comments US THYROID Routine 07/05/2021 9:41 AM EST Postsurgical hypothyroidism History of thyroid cancer documented in this encounter Results * US Thyroid (07/05/2021 9:41 AM EST) Narrative SYSTEMGENERATED, DOCUMENTATION - 07/05/2021 9:41 AM EST Please see performing physician's note for result. us Lindsay DE LA PAZ IMG US ORDERABLES Final R esult documented in this encounter Visit Diagnoses Not on filedocumented in this encounter Care Teams Fire Tender Relationship Specialty Start Date End Date Duncan Mullen MD [address] [facility] [address] [place] [address] PCP - General Adolescent Medicine 05/28/20 documented as of this encounter
--- OUTSIDE RECORDS SUMMARY | 2022-07-12 09:29 | XMS_ITS | Encounter Summary ---
Author Organization [facility] Address [address] [place] [address] Care Team Providers Care Slab Depiler Operator Name Role Phone Duncan Mullen MD Primary Care Provider [phone] Reason for Visit * Diagnostic Imaging (Routine) - Closed Specialty Diagnoses / Procedures Referred By Elías norris Referred To Contact Radiology Diagnoses Postsurgical hypothyroidism History of thyroid cancer Procedures Thyroid El, ANA CRISTINA Leslie [address] [address] Phone: tel: fax: Referral ID Status Reason Start Date Expiration Date Visits Re quested Visits Authorized [id number] Closed 07/12/2022 07/12/2023 1 1 Encounter Details Date Type Department Care Team (Latest Contact Info) Description 07/12/2022 9:29 AM EST Hospital Encounter [facility] [address] [phone] Postsurgical hypothyroidism; History of thyroid cancer Social History Tobacco Use Types Packs/Day [...] Description 12/03/2025 10:30 AM EDT Office Visit [facility] [address] [facility] [address] [place] [address] Christiano Darby MD [address] [facility] [address] [place] [address] documented as of this encounter Procedures Procedure Name Priority Date/Time Associated Diagnosis Comments US THYROID Routine 07/12/2022 9:29 AM EST Postsurgical hypothyroidism History of thyroid cancer documented in this encounter Results * US Thyroid (07/12/2022 9:29 AM EST) Narrative SYSTEMGENERATED, DOCUMENTATION - 07/12/2022 9:29 AM EST Please see performing physician's note for result. us Lindsay DE LA PAZ IMG US ORDERABLES Final R esult documented in this encounter Visit Diagnoses Diagnosis Postsurgical hypothyroidism History of thyroid cancer Personal history of malignant neoplasm of thyroid documented in this encounter Care Teams Slab Depiler Operator Relationship Specialty Start Date End Date Duncan Mullen MD [address] [facility] [address] [place] [address] PCP - General Adolescent Medicine 05/28/20 documented as of this encounter
--- OUTSIDE RECORDS SUMMARY | 2023-12-05 13:20 | XMS_ITS | Encounter Summary ---
Author Organization [facility] Address [address] [place] [address] Care Team Providers Care Quality Assurance Engineer Name Role Phone Duncan Mullen MD Primary Care Provider [phone] Reason for Visit * Diagnostic Imaging (Routine) - Closed Specialty Diagnoses / Procedures Referred By Elías norris Referred To Contact Radiology Diagnoses Thyroid cancer Procedures US Thyroid Christiano Darby MD [address] [address] Phone: tel: fax: Referral ID Status Reason Start Date Expiration Date Visits Re quested Visits Authorized [id number] Closed 12/05/2023 12/04/2024 1 1 Encounter Details Date Type Department Care Team (Late Contact Info) Description 12/05/2023 2:20 PM EDT Hospital Encounter [facility] [address] [phone] Social History Tobacco Use Types [...] Description 12/03/2025 10:30 AM EDT Office Visit [facility] [address] [facility] [address] [place] [address] Christiano Darby MD [address] [facility] [address] [place] [address] documented as of this encounter Procedures Procedure Name Priority Date/Time Associated Diagnosis Comments US THYROID Routine 12/05/2023 2:20 PM EDT Thyroid cancer documented in this encounter Results * US Thyroid (12/05/2023 2:20 PM EDT) Narrative SYSTEMGENERATED, DOCUMENTATION - 12/05/2023 2:20 PM EDT Please see performing physician's note for result. us Christiano Darby MD IMG US ORDERABLES Final R esult documented in this encounter Visit Diagnoses Not on filedocumented in this encounter Care Teams Quality Assurance Engineer Relationship Specialty Start Date End Date Duncan Mullen MD [address] [facility] [address] [facility] [address] [place] [address] PCP - General Adolescent Medicine 05/28/20 documented as of this encounter
--- OUTSIDE RECORDS SUMMARY | 2024-11-16 16:30 | XMS_ITS ---
Author Organization [facility] Address [address] [place] [address] Care Team Providers Care Hi Teacher Name Role Phone Duncan Mullen Primary Care Provider Duncan Mullen Unavailable Unavailable Migration, Provider Unavailable Unavailable REASON FOR VISIT [facility] Conversion Encounter Medications Medication SIG (Take, Route, Frequency, Duration) Notes Start Date End Date Status NovoLOG FlexPen 100 UNIT/ML Solution Pen-injector 125-150 take 3 units, 151-175 take 6 units, 176-200 take 8 units, 201-250 take ten units subcutaneously 3 times a day (before meals); Duration: 50 days Active TADALAFIL (EQV-ADCIRCA) 20 MG TABLET 1 TAB(S) ORALLY ONCE A DAY *Please review for potential replacement for e-prescription and drug interaction check* 01/22/2024 Active BD MAGALI 2ND GEN PEN NEEDLE 4MM X 32G 1 NEEDLE SUBQUE FOUR TIMES DAILY; Duration: 30 DAYS *Please review for potential replacement for e-prescription and drug interaction check* Active Aspirin 325 MG Tablet 1 tab(s) orally once a day Active Atorvastatin Calcium 20 MG Tablet 1 tab(s) orally once a day; Duration: 90 Active Carvedilol 12.5 MG Tablet 1 tab(s) orally 2 times a day; Duration: 90 Active Lisinopril 40 MG Tablet 1 tab(s) orally once a day; Duration: 90 days Active metFORMIN HCl 1000 MG Tablet 1 tab(s) orally 2 times a day; Duration: 90 days Active Levothyroxine Sodium 125 MCG Tablet 1 tab(s) orally once a day Active SOLIQUA 100/33 100 UNITS-33 MCG/ML SOLUTION INJECT UP TO 60 UNITS SUBCUTANEOUSLY EVERY DAY BEFORE BREAKFAST; Duration: 25 DAYS *Please review for potential replacement for e-prescription and drug interaction check* Active hydroCHLOROthiazide 25 MG Tablet 1 tab(s) orally once a day; Duration: 90 days Active Encounters Encounter Location Date Provider Diagnosis [facility] [address] [place] [address] 11/16/2024 Provider Migration Essential hypertension I10 and Type 2 diabetes mellitus with peripheral vascular disease E11.51 Assessments Encounter Date Diagnosis (ICD Code) Assessment Notes Treatment Notes Treatment Clinical Notes Section Notes 11/16/2024 Essential hypertension (ICD-10 - I10) 11/16/2024 Type 2 diabetes mellitus with peripheral vascular disease (ICD-10 - E11.51) Plan Of Treatment Medication Medication Name Sig Start Date Stop Date Notes Carvedilol 12.5 MG Tablet 1 tab(s) orall y 2 times a day; Duration: 90 Lisinopril 40 MG Tablet 1 tab(s) orally once a day; Duration: 90 days metFORMIN HCl 1000 MG Tablet 1 tab(s) orally 2 times a day; Duration: 90 days SOLIQUA 100/33 100 UNITS-33 MCG/ML SOLUTION INJECT UP TO 60 UNITS SUBCUTANEOUSLY EVERY DAY BEFORE BREAKFAST; Duration: 25 DAYS *Please review for potential replacement for e-prescription and drug interaction check* hydroCHLOROthiazide 25 MG Tablet 1 tab(s) orally once a day; Duration: 90 days Progress Notes * Wayne NUNEZOB:1955 ( 70 yo M)Acc No.[id number]:11/16/2024 Patient: Moustapha Sim Provider: Melissa Che :1955 A ge:69 Y S ex:Male Date:11/16/2024 Address:[address], [id number] Pcp:Duncan Mullen Subjective: * Chief Complaints: * M [facility] Conversion Encounter * Medications: T akingLevothyroxine Sodium 125 MCG Tablet 1 tab(s) orally once a day Aspirin 325 MG Tablet 1 tab(s) orally once a day BD MAGALI 2ND GEN PEN NEEDLE 4MM X 32G 1 NEEDLE SUBQUE FOUR TIMES DAILY , Notes to Pharmacist: *Please review for potential replacement for e-prescription and drug interaction check*TADALAFIL (EQV- ADCIRCA) 20 MG TABLET 1 TAB(S) ORALLY ONCE A DAY , Notes to Pharmacist: *Please review for potential replacement for e-prescription and drug interaction check*NovoLOG FlexPen 100 UNIT/ML Solution Pen-injector 125-150 take 3 units, 151-175 take 6 units, 176-200 take 8 units, 201-250 take ten units subcutaneously 3 times a day (before meals) Atorvastatin Calcium 20 MG Tablet 1 tab(s) orally once a day Taking Levothyroxine Sodium 125 MCG Tablet 1 tab(s) orally once a day Taking Aspirin 325 MG Tablet 1 tab(s) orally once a day Taking BD MAGALI 2ND GEN PEN NEEDLE 4MM X 32G 1 NEEDLE SUBQUE FOUR TIMES DAILY , Notes to Pharmacist: *Please review for potential replacement for e-prescription and drug interaction check*Taking TADALAFIL (EQV-ADCIRCA) 20 MG TABLET 1 TAB(S) ORALLY ONCE A DAY , Notes to Pharmacist: *Please review for potential replacement for e-prescription and drug interaction check*Taking NovoLOG FlexPen 100 UNIT/ML Solution Pen-injector 125-150 take 3 units, 151-175 take 6 units, 176- 200 take 8 units, 201-250 take ten units subcutaneously 3 times a day (before meals) Taking Atorvastatin Calcium 20 MG Tablet 1 tab(s) orally once a day Assessment: * Assessment: 1. E ssential hypertension - I10 2 . T ype 2 diabetes mellitus with peripheral vascular disease - E11.51 Plan: * Treatment: 2. T ype 2 diabetes mellitus with peripheral vascular disease Start metFORMIN HCl Tablet, 1000 MG, 1 tab(s), orally, 2 times a day, 90 days, 180 Tablet, Refills 1. 3. O thers Start Carvedilol Tablet, 12.5 MG, 1 tab(s), orally, 2 times a day, 90, 180, Refills 1; S tart Lisinopril Tablet, 40 MG, 1 tab(s), orally, once a day, 90 days, 90 Tablet, Refills 1; S tart SOLIQUA 100/33 SOLUTION, 100 UNITS-33 MCG/ML, INJECT UP TO 60 UNITS SUBCUTANEOUSLY EVERY DAY BEFORE BREAKFAST, 25 DAYS, 15 MILLILITER, Refills 4, Notes to Pharmacist: *Please review for potential replacement for e-prescription and drug interaction check*. Billing Information: * Procedure Codes: * Electronic signature of Dayana rodriguez Migration on 08/12/2025 at 01:04 PM EST Sign off status: Pending * Provider: Melissa bowie Migration Date: 0 11/16/2024 Generated for Thuy rojas/Maged/Jonnaitting on: 1 01:04 PM EST
--- OUTSIDE RECORDS SUMMARY | 2025-01-09 06:30 | XMS_ITS ---
Author Organization [facility] Address [address] [place], [place] [address] Care Team Providers Care Pharmacy Benefit Manager Name Role Phone Duncan Mullen Primary Care Provider [phone] Duncan Mullen Unavailable Unavailable Viridiana Conway Unavailable [phone] REASON FOR VISIT 6 month check up Encounters Encounter Location Date Provider Diagnosis [facility] [address] [place], [place] [address] 01/09/2025 Viridiana Conway Plan Of Treatment No Information Progress Notes * Wayne NUNEZOB:1955 ( 70 yo M)Acc No.[id number]:01/09/2025 Progress Notes Patient: Moustapha Sim Provider: DANG Doshi :1955 A ge:69 Y S ex:Male Date:01/09/2025 Address:[address] [id number] Pcp:Duncan Mullen Subjective: * Chief Complaints: * 6 month check up Billing Information: * Procedure Codes: * Electronic signature of Dia Conway APRN on 08/12/2025 at 01:04 PM EST Sign off status: Pending * Provider: DANG Doshi Date: 0 01/09/2025 Generated for Thuy rojas/Maged/eTransmitting on: 1 01:04 PM EST
--- OUTSIDE RECORDS SUMMARY | 2025-07-31 04:00 | XMS_ITS ---
Author Organization [facility] Address [address] [place], [place] [address] Care Team Providers Care Safety Attendant Name Role Phone Duncan Mullen Primary Care Provider Duncan Mullen Unavailable Unavailable Viridiana Conway Unavailable [phone] REASON FOR VISIT [facility] Encounters Encounter Location Date Provider Diagnosis [facility] [address] [place], [place] [address] 07/31/2025 Viridiana Conway Plan Of Treatment No Information Progress Notes * Wayne NUNEZOB:1955 ( 70 yo M)Acc No.[id number]:07/31/2025 Progress Notes Patient: Moustapha Sim Provider: DANG Doshi :1955 A ge:70 Y S ex:Male Date:07/31/2025 Address:[address] [id number] Pcp:Duncan Mullen Subjective: * Chief Complaints: * A [place] * Electronic signature of Dia Conway APRN on 08/12/2025 at 01:04 PM EST Sign off status: Pending * Provider: DANG Doshi Date: 10/01/2024 Generated for Printi ng/Faxing/eTransmitting on: 01:04 PM EST
--- OUTSIDE RECORDS SUMMARY | 2025-08-12 13:05 | XMS_ITS | Encounter Summary ---
Author Organization [facility] Address [address] [id number] Care Team Providers Care Clip Coater Name Role Phone Duncan Mullen MD Primary Care Provider [phone] Encounter Details Date Type Department Care Team (Late st Contact Info) Description 07/06/2021 Lab Requisition [facility] [address] [place] [address] Lindsay Gallegos PA [address] [place], [place] [id number] Malignant neoplasm of thyroid gland (CMS/HCC) Social History Tobacco Use Types Packs/Day Years Used Date Smoking Tobacco: Former Alcohol Use Standard Drinks/Week Comments No 0 (1 standard drink = 0.6 oz pure alcohol) Alcoholic Drinks/day: Denies alcohol consumption Sex and Gender Information Value Date Recorded Sex Assigned at Not on file Legal Sex Male 8:38 PM EDT Gender Identity Not on file Sexual Orientation Not on file documented as of this encounter Plan of Treatment Not on file documented as of this encounter Procedures Procedure Name Priority Date/Time Associated Diagnosis Comments THYROGLOBULIN (INHOUSE- REFLEX ONLY) Routine 07/05/2021 9:55 AM EST Malignant neoplasm of thyroid gland (CMS/HCC) THYROGLOBULIN ANTIBODY Routine 9:55 AM EST Malignant neoplasm of thyroid gland (CMS/HCC) documented in this encounter Results * Thyroglobulin Antibody (07/05/2021 9:55 AM EST) Thyroglobulin Antibody <1.0 <4.0 IU/mL 07/06/2021 11:35 AM EST [facility] Blood Venous blood specimen / Unknown 07/05/2021 9:55 AM EST 07/06/2021 9:39 AM EST Lindsay DE LA [facility] BLOOD ORDERABLES Final Re sult Performing Organization Address [facility] Co de Phone Number [facility] [address] [place] [address] * Thyroglobulin (InHouse) (07/05/2021 9:55 AM EST) Thyroglobulin (Inhouse) 13.3 <=34.0 ng/mL 07/06/2021 11:35 AM EST [facility] Blood Venous blood specimen / Unknown 07/05/2021 9:55 AM EST 07/06/2021 9:39 AM EST Narrative [facility] - 07/06/2021 11:35 AM EST Thyroglobulin measured by 2nd generation immunoassay. Thyroglobulin antibodies may interfere with thyroglobulin measurements. Consider ordering Thyroglobulin measurement by LC/MS/MS if TG antibody concentrations are elevated. Lindsay DE [facility] BLOOD ORDERABLES Final Re sult Performing Organization Address [facility] de Phone Number [facility] [address] [place] [address] documented in this encounter Visit Diagnoses Diagnosis Malignant neoplasm of thyroid gland (CMS/HCC) Malignant neoplasm of thyroid gland documented in this encounter Additional Health Concerns Infection Onset Date Last Indicated Resolved Time MRSA Comment:Tisuse culture postiive for MRSA. 11/12/2018 01/05/2021 documented as of this encounter Care Teams Clip Coater Relationship Specialty Start Date End Date Duncan Mullen MD [facility] [id number] PCP - General 12/25/20 documented as of this encounter
--- OUTSIDE RECORDS SUMMARY | 2025-08-12 13:05 | XMS_ITS | Clinical Summary ---
Author Organization Healthcare Address [address] [place] [address] Care Team Providers Care Billet Heater Name Role Phone Duncan Mullen MD Primary Care Provider [phone] Family History Medical History Relation Name Comments Pancreatic cancer Brother Diabetes Other 1 Other cancer Other 2 Relation Name Status Comments Brother Other 1 Other 2 Social History Tobacco Use Types Packs/Day Years Used Date Smoking Tobacco: Former Alcohol Use Standard Drinks/Week Comments No 0 (1 standard drink = 0.6 oz pure alcohol) Alcoholic Drinks/day: Denies alcohol consumption Sex and Gender Information Value Date Recorded Sex Assigned at Not on file Legal Sex Male 8:38 PM EDT Gender Identity Not on file Sexual Orientation Not on file Last Filed Vital Signs Vital Sign Reading Time Taken Comments Blood Pressure 122/76 11/07/2018 9:27 AM EDT Pulse 80 11/07/2018 9:27 AM EDT Temperature 36.6 C (97.9 F) 11/07/2018 9:27 AM EDT Respiratory Rate 16 11/07/2018 9:27 AM EDT Oxygen Saturation - - Inhaled Oxygen Concentration - - Weight 127 kg (279 lb 15.8 oz) 10/22/2018 1:46 P M EDT Height 190.5 cm (6' 3 ) 10/22/2018 1:46 PM EDT Body Mass Index 35 10/22/2018 1:46 PM EDT Plan of Treatment Not on file Additional Health Concerns Infection Onset Date Last Indicated MRSA Comment:Tisuse culture postiive for MRSA. 11/12/2018 01/05/2021 Care Teams Billet Heater Relationship Specialty Start Date End Date Duncan Mullen MD [facility] [id number] PCP - General 12/25/20
--- OUTSIDE RECORDS SUMMARY | 2025-08-12 13:06 | XMS_ITS | Patient Health Record ---
Author Organization [facility] Address [address] [place] [address] Care Team Providers Care Television Journalist Name Role Phone Duncan Mullen Primary Care Provider Duncan Mullen Unavailable Unavailable Viridiana Conway Unavailable [phone] Migration, Provider Unavailable Unavailable Allergies No Known Allergies Results Component Value Reference Range Flag Notes Microalbumin (In-House) (Not yet reviewed by provider) Interpretation: Performing Lab: Notes/Report: ALB 150mg CRE 50mg A:C >300mg TSH W/REFLEX TO FT4 (54576) Reviewed date:01/31/2025 09:48:20 AM Interpretation: Performing Lab:SHAUNA [facility]orth-[address], RubikloudJldiGQ[address] Eliot Pickens Notes/Report: NON-FASTING; NON-FASTING; NON-FASTING; NON-FASTING; NON-FAST FASTING:YES FASTING: YES TSH W/REFLEX TO FT4 0.51 0.40-4.50 mIU/L N HEMOGLOBIN A1c (496) Reviewed date:01/31/2025 09:48:20 AM Interpretation: Performing Lab:SHAUNA Kuotuse[address], MyWaveGqgeJN[address] Eliot Pickens Notes/Report: NON-FASTING; NON-FASTING; NON-FASTING; NON-FASTING; NON-FAST FASTING:YES FASTING: YES HEMOGLOBIN A1c 7.3 <5.7 % H duration of diabetes, age, comorbid conditions, and For someone with known diabetes, a value <7% indicates greater than or equal to 7% indicates suboptimal other considerations. that their diabetes is well controlled and a value value of 6.5% or greater indicates that they may have control. A1c targets should be individualized based on Currently, no consensus exists regarding use of hemoglobin A1c for diagnosis of diabetes for children. test. diabetes and this should be confirmed with a follow-up For someone without known diabetes, a hemoglobin A1c CBC (INCLUDES DIFF/PLT) (639 9) Reviewed date:01/31/2025 09:48:20 AM Interpretation: Performing Lab:SHAUNA, Daily[facility]orth-eCardio [id number], DinamundoXuknSN[address] Eliot Pickens Notes/Report: NON-FASTING; NON-FASTING; NON-FASTING; NON-FASTING; NON-FAST FASTING:YES FASTING: YES WHITE BLOOD CELL COUNT 8.8 3.8-10.8 Thousand/uL N RED BLOOD CELL COUNT 4.85 4.20-5.80 Million/uL N HEMOGLOBIN 13.1 13.2-17.1 g/dL L HEMATOCRIT 43.0 38.5-50.0 % N MCV 88.7 80.0-100.0 fL N MCH 27.0 27.0-33.0 pg N MCHC 30.5 32.0-36.0 g/dL L red cell parameters and the patient's clinical value (in the range of 30 to 32 g/dL) is most likely not clinically significant; however, it should be interpreted with caution in correlation with other For adults, a slight decrease in the calculated MCHC condition. RDW 13.1 11.0-15.0 % N PLATELET COUNT 248 140-400 Thousand/uL N MPV 11.0 7.5-12.5 fL N ABSOLUTE NEUTROPHILS 6213 1554-9360 cells/uL N ABSOLUTE LYMPHOCYTES 7078 793-2340 cells/uL N ABSOLUTE MONOCYTES 537 200-950 cells/uL N ABSOLUTE EOSINOPHILS 493 15-500 cells/uL N ABSOLUTE BASOPHILS 62 0-200 cells/uL N NEUTROPHILS 70.6 N LYMPHOCYTES 17.0 N MONOCYTES 6.1 N EOSINOPHILS 5.6 N BASOPHILS 0.7 N COMPREHENSIVE METABOLIC PANE L ([id number]) Reviewed date:01/31/2025 09:48:20 AM Interpretation: Performing Lab:SHAUNA, Daily[facility]orth-eCardio [id number] [facility] Eliot Pickens Notes/Report: NON-FASTING; NON-FASTING; NON-FASTING; NON-FASTING; NON-FAST FASTING:YES FASTING: YES GLUCOSE 94 65-99 mg/dL N Fasting reference interval UREA NITROGEN (BUN) 25 7-25 mg/dL N CREATININE 1.07 0.70-1.35 mg/dL N EGFR 76 > OR = 60 mL/min/1.73m2 N BUN/CREATININE RATIO SEE NOTE: 6-22 (calc) Not Reported: BUN and Creatinine are within reference range. SODIUM 139 135-146 mmol/L N POTASSIUM 4.7 3.5-5.3 mmol/L N CHLORIDE 100 98-110 mmol/L N CARBON DIOXIDE 32 20-32 mmol/L N CALCIUM 9.4 8.6-10.3 mg/dL N PROTEIN, TOTAL 6.4 6.1-8.1 g/dL N ALBUMIN 4.1 3.6-5.1 g/dL N GLOBULIN 2.3 1.9-3.7 g/dL (calc) N ALBUMIN/GLOBULIN RATIO 1.8 1.0-2.5 (calc) N BILIRUBIN, TOTAL 0.6 0.2-1.2 mg/dL N ALKALINE PHOSPHATASE 91 35-144 U/L N AST 16 10-35 U/L N ALT 13 9-46 U/L N LIPID PANEL, STANDARD (7600) Reviewed date:01/31/2025 09:48:19 AM Interpretation: Performing Lab:CB, [facility] Acqs[address] [facility] Eliot Pickens Notes/Report: NON-FASTING; NON-FASTING; NON-FASTING; NON-FASTING; NON-FAST FASTING:YES FASTING: YES CHOLESTEROL, TOTAL 137 <200 mg/dL N HDL CHOLESTEROL 38 > OR = 40 mg/dL L TRIGLYCERIDES 110 <150 mg/dL N LDL-CHOLESTEROL 79 N calculation, which is a validated novel method providing LDL-C is now calculated using the Gal estimation of LDL-C. <70 mg/dL for patients with CHD or diabetic patients better accuracy than the Friedewald equation in the (http://[employer]/faq/LVH145) Julius NIELSEN et al. ZURI. 2013;310(19): 6470-8023 Desirable range <100 mg/dL for primary prevention; Reference range: <100 with > or = 2 CHD risk factors. CHOL/HDLC RATIO 3.6 <5.0 (calc) N NON HDL CHOLESTEROL 99 <130 mg/dL (calc) N (LDL-C of <70 mg/dL) is considered a therapeutic option. For patients with diabetes plus 1 major ASCVD risk factor, treating to a non-HDL-C goal of <100 mg/dL Reason For Referral No Information Medications Medication SIG (Take, Route, Frequency, Duration) Notes Start Date End Date Status Atorvastatin Calcium 20 mg Tablet TAKE ONE TABLET BY MOUTH EVERY DAY; Duration: 90 Active Lisinopril 40 mg Tablet TAKE ONE TABLET BY MOUTH EVERY DAY; Duration: 90 Active Soliqua 100-33 UNT-MCG/ML Solution Pen-injector inject UP TO 60 UNITS SUBCUTANEOUSLY EVERY DAY BEFORE breakfast; Duration: 75 Active NovoLOG FlexPen 100 UNIT/ML Solution Pen-injector 125-150 take 3 units, 151-175 take 6 units, 176-200 take 8 units, 201-250 take ten units subcutaneously 3 times a day (before meals); Duration: 50 days Active Carvedilol 12.5 mg Tablet TAKE ONE TABLET BY MOUTH TWICE DAILY; Duration: 90 Active BD MAGALI 2ND GEN PEN NEEDLE 4MM X 32G 1 NEEDLE SUBQUE FOUR TIMES DAILY; Duration: 30 DAYS *Please review for potential replacement for e-prescription and drug interaction check* Active Levothyroxine Sodium 125 MCG Tablet 1 tab(s) orally once a day Active Aspirin 325 MG Tablet 1 tab(s) orally once a day Active METFORMIN 1000 mg tablet 1 tab(s) orally 2 times a day; Duration: 90 days Active HYDROCHLOROTHIAZIDE 25 mg tablet 1 tab(s) orally once a day; Duration: 90 days Active Immunizations Vaccine Route Administration Date Status Comme nts Covid Kristian Unknown 10/31/2020 Administered FLUZONE 6MO - OLDER IM Intramuscular 04/18/2019 Administer ed Fluzone High Dose Unknown 05/18/2020 Administered Fluzone High Dose IM Intramuscular 05/27/2021 Administered Fluzone High Dose IM Intramuscular 07/08/2024 Administered Fluzone High Dose IM Intramuscular 08/12/2025 Administered Pneumovax 23 IM Intramuscular 07/29/2019 Administered Prevnar PCV-20 (Pneumococcal conjugate 20) IM Intramuscular 04/10/2023 Administered SHINGRIX Unknown 05/18/2020 Administered SHINGRIX Unknown 08/28/2020 Administered Social History Tobacco Use: Social History Observation Description Date Details (start date - stop date) Never Smoker NA - NA Social History Social History Social Info Question Answer Notes Smoking: Are you a: nonsmoker Additional Details Category Social Info Options Details Social History Occupation: retired- Disp tacher Travel outside [place]: no Alcohol: no Sexually active: no Recreational drug use: no Exercise: yes Home smoke detector use: yes Caffeine: yes frequency:1 cup coffee daily Living Will Yes Problems Problem Type SNOMED Code ICD Code Onset Dates Problem Status W/U Status Risk Notes Problem Information temporarily unavailable Type 2 diabetes mellitus without complications (E11.9) Active confirmed Problem Information temporarily unavailable Morbid (severe) obesity due to excess calories (E66.01) Active confirmed Problem Information temporarily unavailable Essential hypertension (I10) Active confirmed Problem Information temporarily unavailable Hyperlipemia, idiopathic familial (E78.5) Active confirmed Problem Information temporarily unavailable Other chronic pain (G89.29) Active confirmed Problem Information temporarily unavailable Erectile dysfunction, unspecified erectile dysfunction type (N52.9) Active confirmed Problem Information temporarily unavailable terminal superintendent current use of insulin (Z79.4) Active confirmed Problem Information temporarily unavailable BMI 36.0-36.9,adult (Z68.36) Active confirmed Problem Information temporarily unavailable History of nephrolithiasis (Z87.442) Active confirmed Problem Information temporarily unavailable Penile lesion (N48.9) Active confirmed Problem Information temporarily unavailable Rosacea (L71.9) Active confirmed Problem Information temporarily unavailable BMI 35.0-35.9,adult (Z68.35) Active confirmed Problem Information temporarily unavailable Type 2 diabetes mellitus with peripheral vascular disease (E11.51) Active confirmed Problem Information temporarily unavailable Unspecified hypothyroidism (E03.9) Active confirmed Problem Information temporarily unavailable Irregular heartbeat (I49.9) Active confirmed Problem Information temporarily unavailable Chronic venous stasis dermatitis of both lower extremities (I87.2) Active confirmed Vital Signs Heart Rate 112 /min 08/12/2025 Temperature 98.4 degrees Fahrenheit 08/12/2025 Blood pressure diastolic 88 mm Hg 08/12/2025 Height 6 ft 3 in in 08/12/2025 Blood pressure systolic 140 mm Hg 08/12/2025 Weight 296 lbs 08/12/2025 BMI 36.99 kg/m2 08/12/2025 Encounters Encounter Location Date Provider Diagnosis [facility] [address] [facility] [address] [place] [address] 11/16/2024 Provider Migration Essential hypertension I10 and Type 2 diabetes mellitus with peripheral vascular disease E11.51 [facility] [address] [facility] [address] [place] [address] 08/12/2025 Viridiana Conway Type 2 diabetes mellitus with peripheral vascular disease E11.51 ; Essential hypertension I10 ; Chronic venous stasis dermatitis of both lower extremities I87.2 ; terminal superintendent current use of insulin Z79.4 ; Unspecified hypothyroidism E03.9 ; Hyperlipemia, idiopathic familial E78.5 ; Erectile dysfunction, unspecified erectile dysfunction type N52.9 ; BMI 36.0-36.9,adult Z68.36 ; Morbid (severe) obesity due to excess calories E66.01 ; Pain in right knee M25.561 ; Pain in left knee M25.562 ; Other chronic pain G89.29 ; Irregular heartbeat I49.9 and Immunization(s) administered Z23 [facility] [address] [facility] [address] [facility] [address] [place] [address] 01/28/2025 Viridiana Conway Type 2 diabetes mellitus with peripheral vascular disease E11.51 ; Essential hypertension I10 ; Chronic venous stasis dermatitis of both lower extremities I87.2 ; terminal superintendent current use of insulin Z79.4 ; Unspecified hypothyroidism E03.9 ; Hyperlipemia, idiopathic familial E78.5 ; Erectile dysfunction, unspecified erectile dysfunction type N52.9 ; BMI 36.0-36.9,adult Z68.36 and Morbid (severe) obesity due to excess calories E66.01 Assessments Encounter Date Diagnosis (ICD Code) Assessment Notes Treatment Notes Treatment Clinical Notes Section Notes 11/16/2024 Essential hypertension (ICD-10 - I10) 11/16/2024 Type 2 diabetes mellitus with peripheral vascular disease (ICD-10 - E11.51) 01/28/2025 Essential hypertension (ICD-10 - I10) just above goal today, normal on home monitoring 01/28/2025 Type 2 diabetes mellitus with peripheral vascular disease (ICD-10 - E11.51) labs pending today, goal A1C < 7, last 7.1 UTD with eye care provider 08/12/2025 Essential hypertension (ICD-10 - I10) just above goal today, normal on home monitoring 08/12/2025 Type 2 diabetes mellitus with peripheral vascular disease (ICD-10 - E11.51) labs pending today, goal A1C < 7, last 7.1 UTD with eye care provider 08/12/2025 Chronic venous stasis dermatitis of both lower extremities (ICD-10 - I87.2) stable, monitor for complications 01/28/2025 Chronic venous stasis dermatitis of both lower extremities (ICD-10 - I87.2) stable, monitor for complications 01/28/2025 [facility] current use of insulin (ICD-10 - Z79.4) 08/12/2025 terminal superintendent current use of insulin (ICD-10 - Z79.4) 01/28/2025 Unspecified hypothyroidism (ICD-10 - E03.9) followed at as well, TSH today 08/12/2025 Unspecified hypothyroidism (ICD-10 - E03.9) followed at as well, TSH today 08/12/2025 Hyperlipemia, idiopathic familial (ICD-10 - E78.5) continue statin therapy 01/28/2025 Hyperlipemia, idiopathic familial (ICD-10 - E78.5) continue statin therapy 01/28/2025 Erectile dysfunction, unspecified erectile dysfunction type (ICD-10 - N52.9) PRN medication 08/12/2025 Erectile dysfunction, unspecified erectile dysfunction type (ICD-10 - N52.9) PRN medication 08/12/2025 BMI 36.0-36.9,adult (ICD-10 - Z68.36) 01/28/2025 BMI 36.0-36.9,adult (ICD-10 - Z68.36) 01/28/2025 Morbid (severe) obesity due to excess calories (ICD-10 - E66.01) complicates all aspects of care, weight loss encouraged 08/12/2025 Morbid (severe) obesity due to excess calories (ICD-10 - E66.01) complicates all aspects of care, weight loss encouraged 08/12/2025 Pain in right knee (ICD-10 - M25.561) 08/12/2025 Pain in left knee (ICD-10 - M25.562) 08/12/2025 Other chronic pain (ICD-10 - G89.29) 08/12/2025 Irregular heartbeat (ICD-10 - I49.9) 08/12/2025 Immunization(s) administered (ICD-10 - Z23) Plan Of Treatment Pending Test Test Name Order Date X ray : Knee, Left 08/12/2025 X ray : Knee, Right 08/12/2025 Microalbumin (In-House) 08/12/2025 M-Complete Blood Count Auto Diff 018 M-Comprehensive Metabolic Panel 04/18/20 19 M-Comprehensive Metabolic Panel 07/20/20 20 M-Comprehensive Metabolic Panel 05/27/20 21 M-Basic Metabolic Panel 08/02/2018 M-Hemoglobin A1C 04/18/2019 M-Hemoglobin A1C 05/27/2021 M-Hemoglobin A1C 07/20/2020 M-Lipid Panel 07/20/2020 M-Lipid Panel 05/27/2021 M-Lipid Panel 04/18/2019 M-Thyroid Stimulating Hormone 04/18/2019 M-Thyroid Stimulating Hormone 05/27/2021 M-Thyroid Stimulating Hormone 07/20/2020 M-HIV (1&2) Antibody Rapid 09/05/2022 M-Microalb/Creat Ratio, Randm Ur 021 Future Test Test Name Order Date H-LIPID PANEL 12/29/2017 H-HGBA1C 12/29/2017 M-Comprehensive Metabolic Panel 03/26/20 18 M-Hemoglobin A1C 03/26/2018 M-Lipid Panel 03/26/2018 Insurance Providers Payer Name Payer Address Payer Phone Subscriber Number Group Number Insured Name Patient Relationship to Insured Coverage Start Date Coverage End Date [facility] [address] [address] [place] [address] [id number] Moustapha Nunez Self - patient is the insured Medical (General) History Medical History History ICD Code Diabetes HLD Hypothyroidism - followed by endocrinolo gy colonoscopy February 2018 with m ultiple tubular adenoma - repeated 11/04 with isolated polyp - 3 year f/u Papillary thyroid cancer - followed by e ndocrinology Peripheral vascular disease Kidney stones in 2005 with lithotripsy a nd stent of ureter 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
--- OUTSIDE RECORDS SUMMARY | 2025-08-12 13:06 | XMS_ITS | Clinical Summary ---
Author Organization [facility] Address [address] [place] [address] Care Team Providers Care Ssis Etl Developer Name Role Phone Duncan Mullen MD Primary Care Provider [phone] Allergies No known active allergies Medications metFORMIN (GLUCOPHAGE) 1000 MG tablet Take 1 tablet by mouth 2 (Two) Times a Day With Meals. Active lisinopril (PRINIVIL,ZEST RIL) 40 MG tablet Take 1 tablet by mouth Daily. Active atorvastatin (LIPITOR) 20 MG tablet Take 1 tablet by mouth Daily. Active hydroCHLOROthi azide (HYDRODIURIL) 25 MG tablet Take 1 tablet by mouth Daily. Active carvedilol (COREG) 12.5 MG tablet Take 1 tablet by mouth 2 (Two) Times a Day With Meals. Active Insulin Glargine-Lixis enatide (Soliqua) 100-33 UNT-MCG/ML solution pen-injector injection Inject 40 Units under the skin into the appropriate area as directed Daily. Injection 40 units SubQ as directed Active insulin aspart (novoLOG FLEXPEN) 100 UNIT/ML solution pen-injector sc pen Inject under the skin into the appropriate area as directed 3 (Three) Times a Day With Meals. Active aspirin 325 MG tablet Take 1 tablet by mouth Daily. Active BD Pen Needle Suzan U/F 32G X 4 MM misc USE 1 pen needle SUBCUTANEOUSLY FOUR TIMES DAILY 4 Active levothyroxine (SYNTHROID, LEVOTHROID) 200 MCG tablet Take 1 tablet by mouth Daily. 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 He had a partial thyroidectomy August 2012. Thyroid cancer 05/28/2020 Assessment & Plan (12/05/2023 2:32 PM EDT): Check TG. A neck u/s was performed today. This revealed clear left thyroid bed. No abnormal lymph nodes were seen in the neck. There was some residual thyroid left on the right. It measured 1.6cm. This appears stable or smaller compared to u/s from 06/2022. Plan for another u/s in 2 years. Postsurgical hypothyroidism 05/28/2020 Assessment & Plan (12/05/2023 2:17 PM EDT): Continue T4 tx. Check TFTs. History of Graves' disease 05/28/2020 Immunizations Immunization Administration Dates Next Due COVID-19 (MONA) 06/19/2021,10/31/2020 Fluad Quad 65+ 04/28/2022 Fluzone (or Fluarix & Flulaval for VFC) >6mos Fluzone High-Dose 65+YRS 05/27/2021,05/18/2020 Pneumococcal Polysaccharide (PPSV23) 07/29/2019 Shingrix 08/28/2020,05/18/2020 Td (TDVAX) 10/19/1996 Tdap 09/16/2019 flucelvax quad pfs =>4 YRS 05/18/2020 Family History Medical History Relation Name Comments Diabetes Brother Diabetes Father Relation Name Status Comments Brother Father Mother Social History Tobacco Use Types Packs/Day Years Used Date Smoking Tobacco: Former Cigars Passive Smoke Exposure: Past Smokeless Tobacco: Never Tobacco Cessation:Counseling Given: No Alcohol Use Standard Drinks/Week Comments Never 0 [...] Sign Reading Time Taken Comments Blood Pressure 138/60 03/31/2025 9:15 AM EDT Pulse 67 03/31/2025 9:15 AM EDT Temperature 36.7 C (98 F) 11/26/2020 8:59 AM EDT Respiratory Rate 16 03/01/2021 9:46 AM EDT Oxygen Saturation 99% 03/31/2025 9:15 AM EDT Inhaled Oxygen Concentration - - Weight 134 kg (295 lb) 03/31/2025 9:15 AM EDT Height 190.5 cm (6' 3 ) 03/31/2025 9:15 AM EDT Body Mass Index 36.87 03/31/2025 9:15 AM EDT Plan of Treatment Upcoming Encounters Date Type Department Care Team (Late st Contact Info) Description 12/03/2025 10:30 AM EDT Office Visit [facility] [address] [facility] [address] [place] [address] Christiano Darby MD [address] [place] [address] Health Maintenance Due Date Last Done Comments COLOGUARD 2001 COLON CANCER SCREENING 5 YEA R SIGMOIDOSCOPY 2001 COLONOSCOPY 2001 [address] CANCER SCREENING 2001 CT COLONOGRAPHY 2001 FECAL OCCULT BLOOD TEST 2001 FIT Testing (1 year) 2001 ANNUAL WELLNESS VISIT 05/28/2020 HEPATITIS C SCREENING 05/28/2020 AAA SCREEN ONCE 2021 INFLUENZA VACCINE 03/14/2025 07/08/2024, , 05/27/2021, Additional history exists COVID-19 Vaccine (3 - 2024-2 6 season) 2025 06/19/2021, 10/31/2020 TDAP/TD VACCINES (2 - Td or Tdap) 09/16/2029 020, 10/19/1996 ZOSTER VACCINE Completed 08/28/2020, 05/18/2020 Pneumococcal Vaccine 50+ Completed 04/10/2023, 07/14 Insurance [place] [id number] [facility] Medicare [employer] PPO Care Teams Ssis Etl Developer Relationship Specialty Start Date End Date Duncan Mullen MD [address] [facility] [address] [place] [id number] PCP - General Adolescent Medicine 05/28/20
--- OUTSIDE RECORDS SUMMARY | 2025-08-12 13:06 | XMS_ITS | Encounter Summary ---
Author Organization [facility] Address [address] [place] [address] Care Team Providers Care Senior Quality Methods Specialist Name Role Phone Duncan Mullen MD Primary Care Provider [phone] Encounter Details Date Type Department Care Team (Late st Contact Info) Description 07/12/2022 Lab Requisition [facility] [address] [place] [address] Lindsay Gallegos PA [address] [place] [address] Encounter for general adult medical examination without abnormal findings Social History Tobacco Use Types Packs/Day Years [...] Name Priority Date/Time Associated Diagnosis Comments THYROGLOBULIN ANTIBODY AND THYROGLOBULIN (HONEY OR LC-MSMS) Routine 07/12/2022 10:15 AM EST Encounter for general adult medical examination without abnormal findings THYROGLOBULIN (INHOUSE- REFLEX ONLY) Routine 07/12/2022 10:15 AM EST Encounter for general adult medical examination without abnormal findings documented in this encounter Results * Thyroglobulin (07/12/2022 10:15 AM EST) Thyroglobulin (Inhouse) 11.7 <=34.0 ng/mL 07/12/2022 11:05 PM EST [facility] Blood Venous blood specimen / Unknown 07/12/2022 10:15 AM EST 07/12/2022 5:29 PM EST Narrative [facility] - 07/12/2022 11:05 PM EST Performed by Thor Sutton 2nd generation TG chemiluminescent immunoassay. Results obtained with different test methods or kits cannot be used interchangeably. us Lindsay DE LA PAZ LAB BLOOD ORDERABLES Final Re sult Performing Organization Address City/[facility]/ZIP Co de Phone Number [facility] [address] [place] [address] * Thyroglobulin Antibody and Thyroglobulin (HONEY or LC-MSMS) (07/12/2022 10:15 AM EST) Thyroglobulin Antibody <1.0 <4.0 IU/mL 07/12/2022 11:05 PM EST [facility] Blood Venous blood specimen / Unknown 07/12/2022 10:15 AM EST 07/12/2022 5:29 PM EST us Lindsay DE LA PAZ LAB BLOOD ORDERABLES Final Re sult Performing Organization Address City/[facility] Co de Phone Number [facility] [address] [place] [address] documented in this encounter Visit Diagnoses Diagnosis Encounter for general adult medical examination without abnormal findings documented in this encounter Additional Health Concerns Infection Onset Date Last Indicated Resolved Time MRSA Comment:Tisuse culture postiive for MRSA. 11/12/2018 01/05/2021 documented as of this encounter Care Teams Senior Quality Methods Specialist Relationship Specialty Start Date End Date Duncan Mullen MD [facility] [id number] PCP - General 12/25/20 documented as of this encounter
--- NOTE | 2025-08-12 13:07 | XR_ITS ---
FINAL REPORT CLINICAL HISTORY: pain bilateral knees FINDINGS: AP, lateral and oblique views of the right knee were obtained. There is no prior exam for comparison. There is no acute osseous abnormality of the right knee. There is advanced degenerative joint disease most pronounced in the medial compartment. The soft tissues are normal. There is a moderate joint effusion. IMPRESSION: Degenerative joint disease with a moderate joint effusion. Consider MRI. Reviewed, Interpreted and Dictated by Belkys Cleveland MD Transcribed by Kae Ramires Authenticated and [facility]
--- NOTE | 2025-08-12 13:07 | XR_ITS ---
FINAL REPORT CLINICAL HISTORY: PAIN IN RT KNEE AND LEFT KNEE FINDINGS: AP, lateral and oblique views of the left knee were obtained. There is no prior exam for comparison. There is no acute osseous abnormality of the left knee. The joint space is preserved. There is advanced degenerative joint disease most pronounced in the medial compartment. The soft tissues are normal. There is a large joint effusion. IMPRESSION: Degenerative joint disease with a large joint effusion. Consider MRI. Reviewed, Interpreted and Dictated by Belkys Cleveland MD Transcribed by Kae Ramires Authenticated and [facility]
== END 2025-08-12 23:59 | disposition home or self-care (01) ==
LOC: RAD 13:01
PROVIDERS: PCP Internal Medicine Adolescent Medicine; Visit Provider Nurse Practitioner Family
DX: M17.0 Bilateral primary osteoarthritis of knee
CPT/HCPCS: 73562